=== PATIENT | female | born 1980 | race Caucasian/White ===

== ENCOUNTER 2016-09-18 20:22 | Emergency (ER) | payer MEDICAID ==
[~2016-09-18] VITALS: Ht 175.3 cm; Wt 65.8 kg
[~2016-09-18 20:22] MED LIST: ALBU8.5H4 IH; AMOX500C2 PO; AMOX500T2 PO; CEFD300C3 PO; CEPH-507 PO; CEPH500C PO; CITA40TA19 PO; CLIN300C3 PO; CRAN450T9 PO; DOCU-143 PO; FAMO-119 PO; HCPR10FM RC; HYDR-3714 PO; HYDR-3816 PO; HYDR50CA3 PO; IBUP-1773 PO; IBUP800T26 PO; KETO75CA PO; LAMO100T PO; LEVO500T80 PO; LIDO20SO20 PO; METO-272 PO; METO10TA3 PO; METR500T PO; NAPR-243 PO; NAPR220T66 PO; OMEP20TA2 PO; ONDA-42 SL; PHEN-639 PO; PHEN100T17 PO; POLY17PO23 GT; PRD20T PO; PRM25T PO; PSEU120T16 PO; QUET100T PO; QUET150T PO; latuda
[2016-09-18 20:55] LABS: KETONES,URINE NEGATIVE (NEGATIVE); LEUKOCYTE ESTERASE ,URINE 1+ (NEGATIVE); NITRITE,URINE NEGATIVE (NEGATIVE); PH,URINE 6 (5-9); PROTEIN,URINE 2+ (NEGATIVE); UROBILINOGEN,URINE NORMAL (NORMAL)
[2016-09-18 21:13] LABS: BILIRUBIN,URINE 1+ (NEGATIVE); SQUAMOUS EPITHELIAL CELL,UR 25-50 /HPF
[2016-09-18] MEDS ORDERED: NS IV 1000 ML 1,000 ML IV ONE (21:25)
[2016-09-18] MEDS ORDERED: ONDANSETRON 4 MG/2 ML (SDV) Z0FRAN IVP ONE (21:30)
[2016-09-18] MEDS ORDERED: fentaNYL INJECTION 100 MCG/2 ML AMP IVP ONE (21:30)
[2016-09-18 21:47] LABS: BASOPHILS % (AUTO) 0 % (0-10); EOSINOPHILS # (AUTO) 0.1 10^3/uL (0.0-0.3); EOSINOPHILS % (AUTO) 1 % (0-10); LYMPHOCYTES % (AUTO) 18 % (12-44); MEAN CORPUSCULAR HEMOGLOBIN 31 PG (25-34); MEAN CORPUSCULAR HGB CONC 36 G/DL (32-36); MEAN CORPUSCULAR VOLUME 87 FL (80-99); MEAN PLATELET VOLUME 9.5 FL (7.4-10.4); MONOCYTES # (AUTO) 0.5 X 10^3 (0.0-1.0); MONOCYTES % (AUTO) 9 % (0-12); NEUTROPHILS % (AUTO) 72 % (42-75); PLATELET COUNT 192 10^3/uL (130-400); RED BLOOD COUNT 4.43 10^6/uL (4.35-5.85); RED CELL DISTRIBUTION WIDTH 11.8 % (10.0-14.5); WHITE BLOOD COUNT 5.7 10^3/uL (4.3-11.0)
[2016-09-18 22:15] LABS: ALANINE AMINOTRANSFERASE 56 U/L (0-55); ALBUMIN 4.4 G/DL (3.2-4.5); ANION GAP 11 MMOL/L (5-14); ASPARTATE AMINO TRANSFERASE 105 U/L (5-34); BILIRUBIN,TOTAL 1.1 MG/DL (0.1-1.0); BLOOD UREA NITROGEN 17 MG/DL (7-18); BUN/CREATININE RATIO 18; CALCIUM 8.5 MG/DL (8.5-10.1); CARBON DIOXIDE 21 MMOL/L (21-32); CHLORIDE 108 MMOL/L (98-107); CREATININE SERUM 0.92 MG/DL (0.60-1.30); GFR ESTIMATED > 60; GLUCOSE 106 MG/DL (70-105); LIPASE 17 U/L (8-78); POTASSIUM 3.3 MMOL/L (3.6-5.0); SODIUM 140 MMOL/L (135-145); TOTAL PROTEIN 7.2 G/DL (6.4-8.2)
[2016-09-18] MEDS ORDERED: PROMETHAZINE INJ 25 MG/ML (PHENERGAN) AMP IVP ONE (22:15)
[2016-09-18] MEDS ORDERED: HYOSCYAMINE 0.125 MG (LEVSIN) TAB SL ONE (22:15)
[2016-09-18] MEDS ORDERED: RX-HYOSCYAMINE 0.125 MG SL (LEVSIN) PPK#6 SL STA (22:47)
[2016-09-18] MEDS ORDERED: RX-ONDANSETRON 4 MG ODT (ZOFRAN) PPK #4 SL STA (22:47)
--- NOTE | 2016-09-18 22:56 | ED Abdominal Pain ---
General Chief Complaint: Abdominal/GI Problems Stated Complaint: VOMITING/BLADDER INFECTION Nursing Triage Note: lower abdominal pain, frequent/burning urination. treated with abx twice in last 2 weeks. Sepsis Screen: No Definite Risk Source of Information: Patient, Old Records Exam Limitations: No Limitations History of Present Illness Time Seen By Provider: 20:50 Initial Comments Patient presents with complaints of recurrent lower abdominal pain and dysuria. She has been treated for urinary tract infection multiple times in the last couple of months. A urine culture resulted at this facility demonstrated Gardnerella which she treated with Flagyl. She has had waxing and waning symptoms over the last couple of months. She was most recently treated in the emergency room at [facility] about 10 days ago. She completed that course of antibiotics but still has symptoms. The last 2 days she has developed nausea, vomiting, odorous belching, worsening dysuria, and chills. Her pain is cramping in nature and radiates up to the rest of her abdomen. She has been vomiting today. She reports children at home who have had vomiting as well. She has had pain with intercourse but denies any vaginal discharge. She does have a history of vaginal infections. She has not had a pelvic exam in the past couple of months. She reports her primary care provider has plans to refer her to a urologist. She has had C-sections, appendectomy complicated by perforation, cholecystectomy, and tubal ligation. She has resulting adhesive disease. Allergies and Home Medications Allergies Coded Allergies: codeine (Unverified Allergy, Severe, SWELLING OF THE THROAT, 12/04/15) PT DENIES BEING ALLERGIC TO TYLENOL #3, 12/04/15. latex (Unverified Allergy, Unknown, 09/05/14) Home Medications Hydroxyzine Pamoate 50 Mg Capsule 50 MG PO TID PRN PRN ANXIETY (Reported) LAST FILLED #90 -5-16 Quetiapine Fumarate 150 Mg Tab.er.24h 150 MG PO HS (Reported) LAST FILLED #30 5-16 Review of Systems Constitutional: no symptoms reported EENTM: No Symptoms Reported Respiratory: No Symptoms Reported Cardiovascular: No Symptoms Reported Gastrointestinal: See HPI Genitourinary: See HPI Musculoskeletal: no symptoms reported Skin: no symptoms reported Psychiatric/Neurological: No Symptoms Reported Past Tvbtwfh-Hgvbjx-Oablph Hx Patient Social History Alcohol Use: Denies Use Recreational Drug Use: Yes Drug of Choice: cannibus Smoking Status: Never a Smoker Recent Foreign Travel: No Contact w/Someone Who Travel: No Recent Infectious Disease Expo: No Recent Hopitalizations: No Physical Abuse Screen: No Sexual Abuse: No Immunizations Up To Date Tetanus Booster (TDap): Unknown Date of Influenza Vaccine: Jun 10, 2015 Seasonal Allergies Seasonal Allergies: No Surgeries HX Surgeries: Yes (TENDON RELEASE/R THUMB, oral, RT ELBOW) Surgeries: Abdominal, Appendectomy, Section, Gallbladder, Orthopedic, Tubal Ligation Respiratory Hx Respiratory Disorders: No Cardiovascular Hx Cardiac Disorders: No Neurological Hx Neurological Disorders: No Reproductive System : No Hx Reproductive Disorders: Yes (left ovarian mass) Sexually Transmitted Disease: No Female Reproductive Disorders: Ovarian 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 ) Psychosocial Hx Psychiatric Problems: Yes Behavioral Health Disorders: Anxiety, Bipolar, Depression Integumentary HX Skin/Integumentary Disorder: No Blood Transfusions Hx Blood Disorders: No Adverse Reaction to a Blood Tr: No Family Medical History Significant Family History: No Pertinent Family Hx Family Medial History: Chronic constipation 19 MOTHER FH: colonic polyps 19 MOTHER Hypertension 19 FATHER 19 MOTHER Kidney stone 19 FATHER 19 MOTHER Physical Exam Vital Signs VS - Last 72 Hours, by Label 09/18/16 09/18/16 20:38 23:04 Temp 98.5 98.2 Pulse 81 90 Resp 18 18 B/P 137/55 Pulse Ox 98 100 O2 Delivery Room Air Room Air Capillary Refill : Less Than 3 Seconds General Appearance: WD/WN mild distress HEENT: PERRL/EOMI normal ENT inspection pharynx normal Respiratory: lungs clear normal breath sounds no respiratory distress no accessory muscle use Cardiovascular: regular rate, rhythm no edema no murmur Gastrointestinal: normal bowel sounds soft tenderness (Across the lower abdomen) Extremities: normal inspection Back: normal inspection no CVA tenderness Pelvic: normal external exam normal adnexa no cerv. motion tender no masses Neurologic/Psychiatric: tool checker II-XII nml as tested no motor/sensory deficits alert normal mood/affect oriented x 3 Skin: normal color warm/dry Progress/Results/Core Measures Results/Orders Lab Results Laboratory Tests Test 1/9/17 20:35 09/18/16 21:40 09/18/16 22:11 Range/Units Urine Bacteria TRACE /HPF Urine Bilirubin 1+ H NEGATIVE Urine Casts NONE /LPF Urine Clarity SLIGHTLY CLOUDY Urine Color YELLOW Urine Crystals NONE /LPF Urine Culture Indicated YES Urine Glucose (UA) NEGATIVE NEGATIVE Urine Ketones NEGATIVE NEGATIVE Urine Leukocyte Esterase 1+ H NEGATIVE Urine Mucus LARGE H /LPF Urine Nitrite NEGATIVE NEGATIVE Urine Protein 2+ H NEGATIVE Urine RBC 2-5 H /HPF Urine RBC (Auto) 2+ H NEGATIVE Urine Specific [place] 1.025 H 1.016-1.022 Urine Squamous Epithelial Cells 25-50 H /HPF Urine Urobilinogen NORMAL NORMAL MG/DL Urine WBC 10-25 H /HPF Urine pH 6 5-9 Alanine Aminotransferase (ALT/SGPT) 56 H 0-55 U/L Albumin 4.4 3.2-4.5 G/DL Alkaline Phosphatase 49 40-136 U/L Anion Gap 11 5-14 MMOL/L Aspartate Amino Transf (AST/SGOT) 105 H 5-34 U/L BUN/Creatinine Ratio 18 Basophils # (Auto) 0.0 0.0-0.1 10^3/uL Basophils (%) (Auto) 0 0-10 % Blood Urea Nitrogen 17 7-18 MG/DL C-Reactive Protein High Sensitivity 2.58 H 0.00-0.50 MG/DL Calcium Level 8.5 8.5-10.1 MG/DL Carbon Dioxide Level 21 21-32 MMOL/L Chloride Level 108 H 98-107 MMOL/L Creatinine 0.92 0.60-1.30 MG/DL Eosinophils # (Auto) 0.1 0.0-0.3 10^3/uL Eosinophils (%) (Auto) 1 0-10 % Estimat Glomerular Filtration Rate > 60 Glucose Level 106 H 70-105 MG/DL Hematocrit 38 35-52 % Hemoglobin 13.8 11.5-16.0 G/DL Lipase 17 8-78 U/L Lymphocytes # (Auto) 1.0 1.0-4.0 X 10^3 Lymphocytes (%) (Auto) 18 12-44 % Mean Corpuscular Hemoglobin 31 25-34 PG Mean Corpuscular Hemoglobin Concent 36 32-36 G/DL Mean Corpuscular Volume 87 80-99 FL Mean Platelet Volume 9.5 7.4-10.4 FL Monocytes # (Auto) 0.5 0.0-1.0 X 10^3 Monocytes (%) (Auto) 9 0-12 % Neutrophils # (Auto) 4.0 1.8-7.8 X 10^3 Neutrophils (%) (Auto) 72 42-75 % Platelet Count 192 130-400 10^3/uL Potassium Level 3.3 L 3.6-5.0 MMOL/L Red Blood Count 4.43 4.35-5.85 10^6/uL Red Cell Distribution Width 11.8 10.0-14.5 % Serum Test, Qualitative NEGATIVE NEGATIVE Sodium Level 140 135-145 MMOL/L Total Bilirubin 1.1 H 0.1-1.0 MG/DL Total Protein 7.2 6.4-8.2 G/DL White Blood Count 5.7 4.3-11.0 10^3/uL Micro Results Microbiology My Orders Orders-JOSE JUAN BROWN MD Ua Culture If Indicated (09/18/16 20:50) Urine Culture (09/18/16 20:35) Cbc With Automated Diff (09/18/16 21:25) Comprehensive Metabolic Panel (09/18/16 21:25) Hcg,Qualitative Serum (09/18/16 21:25) Lipase (09/18/16 21:25) Saline Lock/Iv-Start (09/18/16 21:25) Ns Iv 1000 Ml (Sodium Chloride 0.9%) (09/18/16 21:25) Ondansetron Injection (Zofran Injectio (09/18/16 21:30) Fentanyl Injection (Sublimaze Injection (09/18/16 21:30) Wet Prep (09/18/16 21:27) Neisseria Gonorrhea Dna (09/18/16 21:27) Chlamydia Dna (09/18/16 21:27) Genital Culture (09/18/16 21:27) Hs C Reactive Protein (09/18/16 22:00) Promethazine Injection (Phenergan Injec (09/18/16 22:15) Hyoscyamine Sl Tablet (Levsin Sl Tablet) (09/18/16 22:15) Azithromycin Tablet (Zithromax Tablet) (09/18/16 23:00) Ceftriaxone Injection (Rocephin Injectio (09/18/16 23:00) Rx-Ondansetron Po (Rx-Zofran Po) (09/18/16 22:47) Rx-Hyoscyamine Tab (Rx-Levsin Sl) (09/18/16 22:47) Medications Given in ED Current Medications Medications Dose Ordered Sig/Zee Route Start Time Stop Time Status Last Admin Dose Admin Azithromycin 1000 mg 1,000 mg ONCE ONCE PO 09/18/16 23:00 09/18/16 23:01 DC 09/18/16 22:55 1,000 MG Ceftriaxone Sodium/Sodium Chloride 50 ml @ 100 mls/hr ONCE ONCE IV 09/18/16 23:00 09/18/16 23:04 DC 09/18/16 22:55 100 MLS/HR Fentanyl Citrate 50 mcg ONCE ONCE IVP 09/18/16 21:30 09/18/16 21:31 DC 09/18/16 21:37 50 MCG Hyoscyamine Sulfate 0.25 mg ONCE ONCE SL 09/18/16 22:15 09/18/16 22:17 DC 09/18/16 22:19 0.25 MG Ondansetron HCl 8 mg ONCE ONCE IVP 09/18/16 21:30 09/18/16 21:31 DC 09/18/16 21:37 8 MG Promethazine HCl 12.5 mg ONCE ONCE IVP 09/18/16 22:15 09/18/16 22:17 DC 09/18/16 22:19 12.5 MG Sodium Chloride 1,000 ml @ 0 mls/hr Q0M ONCE IV 09/18/16 21:25 09/18/16 21:27 DC 09/18/16 21:37 0 MLS/HR Vital Signs/I&O Vital Sign - Last 12Hours 09/18/16 09/18/16 20:38 23:04 Temp 98.5 98.2 Pulse 81 90 Resp 18 18 B/P 137/55 Pulse Ox 98 100 O2 Delivery Room Air Room Air Intake and Output 09/19/16 00:00 Intake Total 1050 ml Balance 1050 ml Blood Pressure Mean: 82 Progress Note : Progress Note Patient's pain was treated with fentanyl and nausea was treated with Zofran. Labs were ordered. Questionable presence of urinary tract infection was identified by UA. Refractory nausea was present and promethazine was administered. Levsin was given for cramping which completely resolved her pain. A liter of IV fluids was infused. Because of the recurrent nature of her pelvic pain and history of prior pelvic infections, patient was empirically treated with Rocephin and azithromycin. Departure Impression Impression: Primary Impression: Nausea and vomiting Qualified Code: R11.2 - Nausea with vomiting, unspecified Additional Impressions: Abdominal cramping Urinary tract infection Qualified Code: N39.0 - Urinary tract infection, site not specified Disposition: 01 HOME, SELF-CARE Condition: Improved Departure-Patient Inst. Decision time for Depature: 22:45 Referrals: [facility] (PCP) Primary Care Physician Patient Instructions: Acute Abdomen (Belly Pain), Adult (DC) Add. Discharge Instructions: Follow-up with your primary care provider and/or senior product development manager as soon as possible. Review the vaginal and urine cultures to determine if further antibiotic therapy is necessary. No intercourse or anything vaginally until these results are reviewed with your doctor. Dissolve Zofran (ondansetron) under the tongue every 4 hours as needed for nausea. Dissolve Levsin (hyoscyamine) under the tongue every 4 hours as needed for cramping. Return to the emergency room for worsening symptoms. Drink plenty of clear liquids and gradually advance your diet with small quantities of bland food as tolerated. All discharge instructions reviewed with patient and/or family. Voiced understanding. Copy Copies To 1: ROSARIO DOWNS MD, JOSHUA T MD Sep 18, 2016 22:56
[2016-09-18] MEDS ORDERED: AZITHROMYCIN 250 MG TAB (ZITHROMAX) PO ONE (23:00)
[2016-09-18] MEDS ORDERED: cefTRIAXone INJECTION 1,000 MG in NORMAL SALINE (BAXTER MINI) 50 ML IV ONE (23:00)
[2016-09-18 23:04] VITALS: BP 129/74
== END 2016-09-18 23:03 | disposition home or self-care (01) ==
LOC: EDUNIT# 20:22 → ER 20:23
DX: R11.2 Nausea with vomiting, unspecified (principal); R10.84 Generalized abdominal pain; N39.0 Urinary tract infection, site not specified
CPT/HCPCS: 36415; 80053; 81000; 83690; 84703; 85025; 86141; 87070; 87088; 87210; 87491; 87591; 96361; 96374; 96375

== ENCOUNTER 2017-07-11 17:27 | Emergency (ER) | payer MEDICAID ==
[~2017-07-11] VITALS: Ht 175.3 cm; Wt 63.5 kg
--- OUTSIDE RECORDS SUMMARY | 2017-07-11 18:31 | XMS REPORT ---
Author Author AIXA DOWNEY Organization [facility] Address [address] [place] [address] Care Team Providers Care Ward Service Supervisor Name Role Phone AIXA DOWNEY Unavailable PROBLEMS Type Condition ICD9-CM Code [id number] Code Onset Dates Condition Status SNOMED Code Problem Bipolar II disorder F31.81 Active 53124467 Problem History of urinary infection Z87.440 Active 223948762 Problem Post-traumatic stress disorder, chronic F43.12 Active 98978293 Problem Abdominal pain 789.00 Active 57318837 Problem Acute oral pain 528.9 Active 544099056 Problem Social phobia, generalized F40.11 Active 43048053 Problem Seasonal allergic rhinitis, unspecified allergic rhinitis trigger J30.2 Active 256359447 Problem Persistent headaches R51 Active 78749722 Problem 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 497319875 Problem Hemorrhoids, unspecified hemorrhoid type K64.9 Active 48908400 Problem Nevus D22.9 Active 55344371 ALLERGIES Substance Reaction Event Type Date Status Latuda hives Drug Allergy Nov, Active Codeine Unknown Non Drug Allergy Nov, Active SOCIAL HISTORY Never Assessed PLAN OF CARE Activity Details Follow Up prn Reason: VITAL SIGNS Height 69 in 2016-11-12 Weight 146 lbs 2016-11-12 Temperature 98.1 degrees Fahrenheit 2016-11-12 Heart Rate 86 bpm 2016-11-12 Respiratory Rate 18 2016-11-12 BMI 21.56 kg/m2 2016-11-12 Blood pressure systolic 122 mmHg 2016-11-12 Blood pressure diastolic 76 mmHg 2016-11-12 MEDICATIONS Medication Instructions Dosage Frequency Start Date End Date Duration Status HydrOXYzine Pamoate 50 mg Orally 2 times a day for anxiety 1 capsule as needed Jul, Active Hydrocortisone 1 % Externally Twice a day 1 application to affected area 12h 07 May, 2016 Active Diflucan 150 MG Orally Once a day 1 tablet, then repeat in 72 hours 24h Nov, Nov, 3 days Active Seroquel XR 150 MG Orally Once a day at hs 1 tablet Jul, Active PredniSONE 50 MG Orally Once a day 1 tablet 24h Nov, Nov, 5 days Active Cetirizine HCl 10 MG Orally Once a day 1 tablet 24h Nov, 30 day (s) Active Metoprolol Tartrate 25 MG Orally Twice a day for panic 1 tablet with food Sep, 30 day(s) Active RESULTS No Results PROCEDURES Procedure Date Ordered Result Body Site SOLUMEDROL (UP TO 125 MG) November 12, 2016 THER/PROPH/DIAG INJ, SC/IM November 12, 2016 IMMUNIZATIONS Vaccine Route Administration Date Status SOLUMEDROL (UP TO 125 MG) IM Intramuscular November 12, 2016 Administered MEDICAL (GENERAL) HISTORY Type Description Date Medical History depression Medical History anxiety Medical History bipolar disorder: was admitted to [facility] in - April 2013 Medical History leaking appendix: 13 years ago during - had it removed after delivery Medical History Social anxiety disorder Surgical History tubal ligation 2007 Surgical History cholecystectomy 2001 Surgical History appendectomy 2000 Surgical History breast biopsy X2 1998 Surgical History orthopedic surgery: right elbow surgery, right wrist tendon release - Dr. Schmidt - [place], [place] 1997, 2014 Hospitalization History Sepsis--[facility] 11/2015
--- OUTSIDE RECORDS SUMMARY | 2017-07-11 18:31 | XMS REPORT ---
Author Author APOORVA LOPEZ [facility] e[employer] Address Unknown Phone Unavailable Care Team Providers Care Creative Specialist Name Role Phone APOORVA LOPEZ CP Unavailable Allergies No Known Allergies Problems Problem Type Condition Code Onset Dates Condition Status Assessment Post-traumatic stress disorder, chronic F43.12 Active Problem Post-traumatic stress disorder, chronic F43.12 Active Problem Social anxiety disorder F40.10 Active Problem Bipolar II disorder F31.81 Active Assessment Bipolar II disorder F31.81 Active Assessment Social anxiety disorder F40.10 Active Problem Acute oral pain 528.9 Active Problem Abdominal pain 789.00 Active Medications No Known Medications Procedures Procedure Coding System Code Date Psychotherapy, patient &/family, 45 minutes, established patient CPT-4 51341 Jun 22, 2015 Results No Known Results Summary Purpose eClinicalWorks Submission
--- OUTSIDE RECORDS SUMMARY | 2017-07-11 18:31 | XMS REPORT ---
Author VALENTE Alexander Organization [employer] Address Unknown Phone Unavailable Care Team Providers Care Sewer Pipe Layer Name Role Phone VALENTE GUERRA CP Unavailable Allergies, Adverse Reactions, Alerts Substance Reaction Event Type Latuda hives Drug Allergy Problems Problem Type Condition Code Onset Dates Condition Status Assessment Post-traumatic stress disorder, chronic F43.12 Active Problem Post-traumatic stress disorder, chronic F43.12 Active Problem Social anxiety disorder F40.10 Active Problem Bipolar II disorder F31.81 Active Assessment Bipolar II disorder F31.81 Active Assessment Social anxiety disorder F40.10 Active Problem Acute oral pain 528.9 Active Problem Abdominal pain 789.00 Active Medications Medication Code System Code Instructions Start Date End Date Status Dosage Seroquel XR [facility] [address]-31 150 MG Orally Once a day Jul 27, 2015 1 tablet in the evening MiraLax [facility] [address]-14 17 gm/dose Orally Once a day January 21, 2015 as directed Ibuprofen [facility] [address]-57 800 MG Orally Three times a day 1 tablet Toprol XL [facility] [address]-92 50 MG Orally Once a day May 20, 2015 1 tablet Lamictal [facility] [address]-71 100 MG Orally take 1 tablet in AM Jul 27, 2015 1 tablet HydrOXYzine Pamoate [facility] [address]-16 50 MG Orally 3 times a day for anxiety Jul 27, 2015 1 capsule as needed Procedures Procedure Coding System Code Date Office Visit, Est Pt., Level 4 CPT-4 73172 Sep 07, 2015 Psychotherapy, patient &/family, with E&M, 30 minutes, established patient CPT -4 29408 Sep 07, 2015 Vital Signs Date/Time: Sep 07, 2015 Cardiac Monitoring Heart Rate 100 bpm Weight 137.0 lbs Height 69 in BMI 20.23 Index Blood Pressure Diastolic 94 mmHg Blood Pressure Systolic 130 mmHg Results No Known Results Summary Purpose eClinicalWorks Submission
--- OUTSIDE RECORDS SUMMARY | 2017-07-11 18:31 | XMS REPORT ---
Author Author NIMA ZACARIAS Organization [employer] Address Unknown Phone Unavailable Care Team Providers Care Second Vp Hr Assessment Name Role Phone NIMA ZACARIAS CP Unavailable Allergies No Known Allergies Problems Problem Type Condition Code Onset Dates Condition Status Problem Post-traumatic stress disorder, chronic F43.12 Active Problem Social anxiety disorder F40.10 Active Problem Bipolar II disorder F31.81 Active Problem Acute oral pain 528.9 Active Problem Abdominal pain 789.00 Active Medications No Known Medications Results No Known Results Summary Purpose eClinicalWorks Submission
--- OUTSIDE RECORDS SUMMARY | 2017-07-11 18:31 | XMS REPORT ---
Author VALENTE Alexander [employer] Address Unknown Phone Unavailable Care Team Providers Care Rn Ccu Name Role Phone VALENTE GUERRA CP Unavailable Allergies, Adverse Reactions, Alerts Substance Reaction Event Type Latuda hives Drug Allergy Problems Problem Type Condition Code Onset Dates Condition Status Problem Social anxiety disorder F40.10 Active Problem Bipolar II disorder F31.81 Active Problem Post-traumatic stress disorder, chronic F43.12 Active Problem PTSD (post-traumatic stress disorder) F43.10 Active Problem Nevus D22.9 Active Problem Seasonal allergic rhinitis, unspecified allergic rhinitis trigger J30.2 Active Problem Hemorrhoids, unspecified hemorrhoid type K64.9 Active Problem History of urinary infection Z87.440 Active Problem 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 Problem Persistent headaches R51 Active Assessment Post-traumatic stress disorder, chronic F43.12 Active Assessment Bipolar II disorder F31.81 Active Problem Abdominal pain 789.00 Active Assessment Social anxiety disorder F40.10 Active Problem Acute oral pain 528.9 Active Medications Medication Code System Code Instructions Start Date End Date Status Dosage HydrOXYzine Pamoate [facility] [address]-43 50 mg Orally 3 times a day for anxiety Jul 27, 2015 1 capsule as needed Seroquel XR [facility] [address]-64 150 MG Orally Once a day at hs Jul 27, 2015 1 tablet Sarna [facility] [address]-57 0.5-0.5 % Externally Three times a day May 17, 2016 1 application to affected area as needed Hydrocortisone [facility] [address]-72 1 % Externally Twice a day May 17, 2016 1 application to affected area Clobetasol Propionate [facility] [address]-25 0.05 % Externally Twice a day April 06, 2016 1 application to affected area Lamictal [facility] [address]-23 100 MG Orally 1/2 tab in AM and 1 full at HS Jul 27, 2015 1 tablet Toprol XL [facility] [address]-26 50 MG Orally Once at night May 20, 2015 1 tablet Flonase NDC 0 50 MCG/DOSE Nasally twice a day May 17, 2016 1 spray in each nostril Colace [facility] [address]-43 100 MG Orally 2 times a day prn 1 capsule as needed Cranberry Fruit [facility] [address]-42 405 MG Orally not defined Proctofoam HC [facility] [address]-85 1-1 % Rectal Four times a day April 06, 2016 1 application as needed Claritin [facility] [address]-32 10 mg Orally Once a day May 17, 2016 1 tablet Procedures Procedure Coding System Code Date MH Office Visit, Est Pt., Level 4 CPT-4 90406 Jun 27, 2016 Vital Signs Date/Time: Jun 27, 2016 Cardiac Monitoring Heart Rate 76 bpm Weight 150.0 lbs Height 69 in BMI 22.15 Index Blood Pressure Diastolic 65 mmHg Blood Pressure Systolic 110 mmHg Results No Known Results Summary Purpose eClinicalWorks Submission
--- OUTSIDE RECORDS SUMMARY | 2017-07-11 18:31 | XMS REPORT ---
Author Author VALENTE GUERRA [facility] Address [address] [place] [address] Care Team Providers Care Journeyman Patternmaker Name Role Phone VALENTE GUERRA Unavailable PROBLEMS Type Condition ICD9-CM Code [id number] Code Onset Dates Condition Status SNOMED Code Problem Bipolar II disorder F31.81 Active 44676187 Problem History of urinary infection Z87.440 Active 215667890 Problem Post-traumatic stress disorder, chronic F43.12 Active 13316284 Problem Abdominal pain 789.00 Active 71149828 Problem Acute oral pain 528.9 Active 960287523 Problem Social phobia, generalized F40.11 Active 16869403 Problem Seasonal allergic rhinitis, unspecified allergic rhinitis trigger J30.2 Active 888627273 Problem Persistent headaches R51 Active 82987339 Problem 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
--- OUTSIDE RECORDS SUMMARY | 2017-07-11 18:32 | XMS REPORT ---
Author Author [facility]EINAB GARRISON [facility] Address [address] [place] [address] Care Team Providers Care Hop Trainer Name Role Phone ZEINAB GARRISON Unavailable PROBLEMS Type Condition ICD9-CM Code [id number] Code Onset Dates Condition Status SNOMED Code Problem Post-traumatic stress disorder, chronic F43.12 Active 50517675 Problem History of urinary infection Z87.440 Active 536505728 Problem Bipolar II disorder F31.81 Active 37114434 Assessment Seasonal allergic rhinitis, unspecified allergic rhinitis trigger J30.2 May, Active 120177525 Problem Abdominal pain 789.00 Active 08456318 Problem Acute oral pain 528.9 Active 209896644 Problem Social anxiety disorder F40.10 Active 18436121 Problem Seasonal allergic rhinitis, unspecified allergic rhinitis trigger J30.2 Active 389863432 Problem PTSD (post-traumatic stress disorder) F43.10 Active 61078341 Problem Persistent headaches R51 Active 81791340 Problem Hemorrhoids, unspecified hemorrhoid type K64.9 Active 37000607 Problem Nevus D22.9 Active 40512715 Problem 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 722655230 ALLERGIES Substance Reaction Event Type Date Status Latuda hives Drug Allergy May, Active SOCIAL HISTORY No smoking Hx information available PLAN OF CARE VITAL SIGNS Height 69 in 2016-05-17 Weight 148.8 lbs 2016-05-17 Heart Rate 80 bpm 2016-05-17 Respiratory Rate 16 2016-05-17 BMI 21.97 kg/m2 2016-05-17 Blood pressure systolic 118 mmHg 2016-05-17 Blood pressure diastolic 62 mmHg 2016-05-17 MEDICATIONS Medication Instructions Dosage Frequency Start Date End Date Duration Status Toprol XL 50 MG Orally Once at night 1 tablet May, Active Proctofoam HC 1-1 % Rectal Four times a day 1 application as needed 6h Mar, Active Colace 100 MG Orally 2 times a day prn 1 capsule as needed Active Sarna 0.5-0.5 % Externally Three times a day 1 application to affected area as needed 8h May, Active Claritin 10 mg Orally Once a day 1 tablet 24h May, Active Cranberry Fruit 405 MG Active HydrOXYzine Pamoate 50 mg Orally 3 times a day for anxiety 1 capsule as needed Jul, Active Seroquel XR 150 MG Orally Once a day at hs 1 tablet Jul, Active Lamictal 100 MG Orally Once a day 1 tablet 24h Jul, Active Flonase 50 MCG/DOSE Nasally twice a day 1 spray in each nostril 12h May Active Hydrocortisone 1 % Externally Twice a day 1 application to affected area 12h May, Active RESULTS No Results PROCEDURES Procedure Date Ordered Related Diagnosis Body Site Office Visit, Est Pt., Level 3 May 17, 2016 IMMUNIZATIONS No Known Immunizations
--- OUTSIDE RECORDS SUMMARY | 2017-07-11 18:32 | XMS REPORT ---
Author Author CELINA Mosley [facility] Address Unknown Care Team Providers Care Job Estimator Name Role Phone CELINA Mosley Unavailable PROBLEMS Type Condition ICD9-CM Code [id number] Code Onset Dates Condition Status SNOMED Code Problem Bipolar II disorder F31.81 Active 58933761 Problem History of urinary infection Z87.440 Active 177758911 Problem Post-traumatic stress disorder, chronic F43.12 Active 63459982 Problem Abdominal pain 789.00 Active 81591503 Problem Acute oral pain 528.9 Active 433402356 Problem Social phobia, generalized F40.11 Active 19413898 Problem Seasonal allergic rhinitis, unspecified allergic rhinitis trigger J30.2 Active 100343681 Problem Persistent headaches R51 Active 51378879 Problem 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 114402272 Problem Hemorrhoids, unspecified hemorrhoid type K64.9 Active 90456640 Problem Nevus D22.9 Active 91479798 ALLERGIES Substance Reaction Event Type Date Status Latuda hives Drug Allergy Aug, Active Codeine Unknown Non Drug Allergy Aug, Active SOCIAL HISTORY No smoking Hx information available PLAN OF CARE Activity Details Follow Up prn Reason:melba/hygiene VITAL SIGNS Height 69 in 2016-08-10 Blood pressure systolic 110 mmHg 2016-08-10 Blood pressure diastolic 77 mmHg 2016-08-10 MEDICATIONS Medication Instructions Dosage Frequency Start Date End Date Duration Status HydrOXYzine Pamoate 50 mg Orally 3 times a day for anxiety 1 capsule as needed Jul, Active Cranberry Fruit 405 MG Active Seroquel XR 150 MG Orally Once a day at hs 1 tablet Jul, Active Cyclone 5-325 MG Orally every 6 hrs 1 tablet as needed 6h 4 days Active Colace 100 MG Orally 2 times a day prn 1 capsule as needed Active Toprol XL 50 MG Orally Once at night 1 tablet May, Active Sarna 0.5-0.5 % Externally Three times a day 1 application to affected area as needed 8h May, Active Clobetasol Propionate 0.05 % Externally Twice a day 1 application to affected area 12h Mar, Active Claritin 10 mg Orally Once a day 1 tablet 24h May, Active Proctofoam HC 1-1 % Rectal Four times a day 1 application as needed 6h Mar, Active Flonase 50 MCG/DOSE Nasally twice a day 1 spray in each nostril 12h May Active Cyclone 5-325 MG Orally every 6 hrs 1 tablet as needed 6h Aug,Aug 4 days Active Amoxicillin 500 MG Orally 4 times daily 1 capsule 7 days Active Lamictal 100 MG Orally 1/2 tab in AM and 1 full at HS 1 tablet Jul, Active Hydrocortisone 1 % Externally Twice a day 1 application to affected area 12h May, Active RESULTS No Results PROCEDURES Procedure Date Ordered Related Diagnosis Body Site RESIN COMPOS - 2 SURFACES ANTERIOR Aug 10, 2016 ANTERIOR Aug 10, 2016 Billing Notes on claim Aug 10, 2016 IMMUNIZATIONS No Known Immunizations
--- OUTSIDE RECORDS SUMMARY | 2017-07-11 18:32 | XMS REPORT ---
Author NIMA Williamson Organization [employer] Address Unknown Phone Unavailable Care Team Providers Care Clinical Documentation Developer Name Role Phone NIMA ZACARIAS CP Unavailable Allergies No Known Allergies Problems Problem Type Condition Code Onset Dates Condition Status Problem Abdominal pain 789.00 Active Problem Social anxiety disorder F40.10 Active Problem Acute oral pain 528.9 Active Problem 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 Problem Persistent headaches R51 Active Problem Nevus D22.9 Active Problem Bipolar II disorder F31.81 Active Problem Post-traumatic stress disorder, chronic F43.12 Active Problem Hemorrhoids, unspecified hemorrhoid type K64.9 Active Problem History of urinary infection Z87.440 Active Medications Medication Code System Code Instructions Start Date End Date Status Dosage Clobetasol Propionate [facility] [address]-51 0.05 % Externally Twice a day April 06, 2016 1 application to affected area Results No Known Results Summary Purpose eClinicalWorks Submission
--- OUTSIDE RECORDS SUMMARY | 2017-07-11 18:32 | XMS REPORT ---
Author Author NIMA ZACARIAS [facility] Address [address] [place] [address] Care Team Providers Care Coater Name Role Phone NIMA ZACARIAS Unavailable PROBLEMS Type Condition ICD9-CM Code [id number] Code Onset Dates Condition Status SNOMED Code Problem Bipolar II disorder F31.81 Active 25065548 Problem History of urinary infection Z87.440 Active 892470460 Problem Post-traumatic stress disorder, chronic F43.12 Active 20868964 Problem Abdominal pain 789.00 Active 64578555 Problem Acute oral pain 528.9 Active 512492668 Problem Social phobia, generalized F40.11 Active 58829723 Problem Seasonal allergic rhinitis, unspecified allergic rhinitis trigger J30.2 Active 197833974 Problem Persistent headaches R51 Active 32251058 Problem 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 489602475 Problem Hemorrhoids, unspecified hemorrhoid type K64.9 Active 60849833 Problem Nevus D22.9 Active 38029202 ALLERGIES No Information SOCIAL HISTORY Never Assessed PLAN OF CARE VITAL SIGNS MEDICATIONS Medication Instructions Dosage Frequency Start Date End Date Duration Status Flagyl 500 MG Orally 2 times a day 1 tablet 12h Oct, Oct, 07 days Active RESULTS No Results PROCEDURES No Known procedures IMMUNIZATIONS No Known Immunizations MEDICAL (GENERAL) HISTORY Type Description Date Medical History depression Medical History anxiety Medical History bipolar disorder: was admitted to [facility] in - April 2013 Medical History leaking appendix: 13 years ago during - had it removed after delivery Medical History Social anxiety disorder Surgical History tubal ligation 2007 Surgical History cholecystectomy 2001 Surgical History appendectomy 2000 Surgical History breast biopsy X2 1999 Surgical History orthopedic surgery: right elbow surgery, right wrist tendon release - Dr. Brayan [place], [place] 1997, 2014 Hospitalization History Sepsis--UTI 11/2015
--- OUTSIDE RECORDS SUMMARY | 2017-07-11 18:32 | XMS REPORT ---
Author Author REGINA DAVISON [facility] [employer] Address Unknown Phone Unavailable Care Team Providers Care Pathology Technologist Name Role Phone REGINA DAVISON CP Unavailable Allergies, Adverse Reactions, Alerts Substance Reaction Event Type N.K.D.A. Info Not Available Non Drug Allergy Problems Problem Type Condition ICD-9 Code Onset Dates Condition Status Problem Abdominal pain 789.00 Active Assessment Acute oral pain 528.9 Active Problem Acute oral pain 528.9 Active Medications Medication Code System Code Instructions Start Date End Date Status Dosage [place] [facility] [address]-77 5-325 MG Orally every 6 hrs 1 tablet as needed Ibuprofen [facility] [address]-13 800 MG Orally Three times a day 1 tablet Zofran [facility] [address]-94 4 MG Orally 3 times a day May 15, 2015 1 tablet Procedures Procedure Coding System Code Date Office Visit, Est Pt., Level 3 CPT-4 73947 May 15, 2015 Vital Signs Date/Time: May 15, 2015 Temperature 97.5 F Weight 148.8 lbs Height 69 in BMI 21.97 Index Blood Pressure Diastolic 76 mmHg Blood Pressure Systolic 110 mmHg Cardiac Monitoring Heart Rate 94 bpm Results No Known Results Summary Purpose eClinicalWorks Submission
--- OUTSIDE RECORDS SUMMARY | 2017-07-11 18:32 | XMS REPORT ---
Author VALENTE Alexander [employer] Address Unknown Phone Unavailable Care Team Providers Care Storeroom Clerk Name Role Phone VALENTE GUERRA CP Unavailable Allergies No Known Allergies Problems Problem Type Condition Code Onset Dates Condition Status Problem Social anxiety disorder F40.10 Active Problem Bipolar II disorder F31.81 Active Problem Post-traumatic stress disorder, chronic F43.12 Active Problem Abdominal pain 789.00 Active Problem Acute oral pain 528.9 Active Problem PTSD (post-traumatic stress disorder) F43.10 Active Problem Nevus D22.9 Active Problem Seasonal allergic rhinitis, unspecified allergic rhinitis trigger J30.2 Active Problem Hemorrhoids, unspecified hemorrhoid type K64.9 Active Problem History of urinary infection Z87.440 Active Problem 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 Problem Persistent headaches R51 Active Medications Medication Code System Code Instructions Start Date End Date Status Dosage HydrOXYzine Pamoate [facility] [address]-62 50 mg Orally 3 times a day for anxiety Jul 27, 2015 1 capsule as needed Results No Known Results Summary Purpose [employer]ClinicalWorks Submission
--- OUTSIDE RECORDS SUMMARY | 2017-07-11 18:33 | XMS REPORT ---
Author VALENTE Alexander Organization [employer] Address Unknown Phone Unavailable Care Team Providers Care Last Scourer Name Role Phone VALENTE GUERRA CP Unavailable Allergies No Known Allergies Problems Problem Type Condition Code Onset Dates Condition Status Problem Post-traumatic stress disorder, chronic F43.12 Active Problem Social anxiety disorder F40.10 Active Problem Bipolar II disorder F31.81 Active Problem Acute oral pain 528.9 Active Problem Abdominal pain 789.00 Active Medications Medication Code System Code Instructions Start Date End Date Status Dosage Toprol XL [facility] [address]-37 50 MG Orally Once a day May 20, 2015 1 tablet Lamictal [facility] [address]-88 25 MG Orally take 1 tablet in the AM for 2 weeks then increase to 2 tablets each morning and continue for depression Jul 27, 2015 1 tablet Seroquel XR [facility] [address]-99 150 MG Orally Once a day Jul 27, 2015 1 tablet in the evening Results No Known Results Summary Purpose [employer]ClinicalWorks Submission
--- OUTSIDE RECORDS SUMMARY | 2017-07-11 18:33 | XMS REPORT ---
Author Author REGINA CHO [facility] Address [address] [place] [address] Care Team Providers Care Release Of Information Clerk Name Role Phone REGINA CHO Unavailable PROBLEMS Type Condition ICD9-CM Code [id number] Code Onset Dates Condition Status SNOMED Code Problem Bipolar II disorder F31.81 Active 59634975 Problem History of urinary infection Z87.440 Active 954239255 Problem Post-traumatic stress disorder, chronic F43.12 Active 73233848 Problem Abdominal pain 789.00 Active 46207450 Problem Acute oral pain 528.9 Active 396329523 Problem Social phobia, generalized F40.11 Active 81694399 Problem Seasonal allergic rhinitis, unspecified allergic rhinitis trigger J30.2 Active 264188573 Problem Persistent headaches R51 Active 49469501 Problem 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 199606097 Problem Hemorrhoids, unspecified hemorrhoid type K64.9 Active 24405044 Problem Nevus D22.9 Active 78117026 ALLERGIES Substance Reaction Event Type Date Status Latkleber hives Drug Allergy Nov, Active Codeine Unknown Non Drug Allergy Nov, Active SOCIAL HISTORY Never Assessed PLAN OF CARE Activity Details Follow Up prn Reason: VITAL SIGNS Height 69 in 2016-11-22 Weight 149.6 lbs 2016-11-22 Temperature 97.8 degrees Fahrenheit 2016-11-22 Heart Rate 88 bpm 2016-11-22 Respiratory Rate 18 2016-11-22 BMI 22.09 kg/m2 2016-11-22 Blood pressure systolic 116 mmHg 2016-11-22 Blood pressure diastolic 74 mmHg 2016-11-22 MEDICATIONS Medication Instructions Dosage Frequency Start Date End Date Duration Status Silvadene 1 % Externally twice a day 1 application to affected area 12h 15 Nov, 2016 Nov, 07 days Active HydrOXYzine Pamoate 50 mg Orally 2 times a day for anxiety 1 capsule as needed Jul, Active Seroquel XR 150 MG Orally Once a day at hs 1 tablet Jul, Active Cetirizine HCl 10 MG Orally Once [...] History bipolar disorder: was admitted to [facility] in - April 2013 Medical History leaking appendix: 13 years ago during - had it removed after delivery Medical History Social anxiety disorder Surgical History tubal ligation 2007 Surgical History cholecystectomy 2001 Surgical History appendectomy 2000 Surgical History breast biopsy X2 1998 Surgical History orthopedic surgery: right elbow surgery, right wrist tendon release - Dr. Schmidt - [place], [place] 1997, 2014 Hospitalization History Sepsis--UTI 11/2015
--- OUTSIDE RECORDS SUMMARY | 2017-07-11 18:35 | XMS REPORT ---
Author NIMA Williamson [facility] [employer] Address Unknown Phone Unavailable Care Team Providers Care Enterprise Resource Planning Consultant Name Role Phone NIMA ZACARIAS Unavailable Allergies, Adverse Reactions, Alerts Substance Reaction [...] Problem History of urinary infection Z87.440 Active Assessment Hemorrhoids, unspecified hemorrhoid type K64.9 Active Assessment Persistent headaches R51 Active Assessment 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 Assessment Nevus D22.9 Active Medications Medication Code System Code Instructions Start Date End Date Status Dosage Colace [facility] [address]-57 100 MG Orally 2 times a day prn 1 capsule as needed Zyrtec Allergy [facility] [address]-19 10 MG Orally Once a day December 15, 2015 Apr 13, 2016 1 tablet as needed Proctofoam HC [facility] [address]-89 1-1 % Rectal Four times a day April 06, 2016 1 application as needed Lamictal [facility] [address]-89 100 MG Orally Once a day Jul 27, 2015 1 tablet HydrOXYzine Pamoate [facility] [address]-00 50 mg Orally 3 times a day for anxiety Jul 27, 2015 1 capsule as needed Clobetasol Propionate [facility] [address]-12 0.05 % Externally Twice a day April 06, 2016 1 application to affected area Cranberry Fruit [facility] [address]-79 405 MG Orally not defined Seroquel XR [facility] [address]-29 150 MG Orally Once a day at hs Jul 27, 2015 1 tablet Procedures Procedure Coding System Code Date Office Visit, Est Pt., Level 4 CPT-4 80535 April 06, 2016 Vital Signs Date/Time: April 06, 2016 Cardiac Monitoring Heart Rate 70 bpm Weight 150.0 lbs Height 69 in BMI 22.15 Index Blood Pressure Diastolic 68 mmHg Blood Pressure Systolic 118 mmHg Results No Known Results Summary Purpose eClinicalWorks Submission
--- OUTSIDE RECORDS SUMMARY | 2017-07-11 18:35 | XMS REPORT ---
Author APOORVA Gudino Organization [employer] Address Unknown Phone Unavailable Care Team Providers Care Money Laundering Investigator Name Role Phone APOORVA LOPEZ CP Unavailable Allergies No Known Allergies Problems Problem Type Condition Code Onset Dates Condition Status Assessment Social anxiety disorder F40.10 Active Problem Post-traumatic stress disorder, chronic F43.12 Active Problem Social anxiety disorder F40.10 Active Problem Bipolar II disorder F31.81 Active Assessment Bipolar II disorder F31.81 Active Assessment Post-traumatic stress disorder, chronic F43.12 Active Problem Acute oral pain 528.9 Active Problem Abdominal pain 789.00 Active Medications No Known Medications Procedures Procedure Coding System Code Date Psychotherapy, patient &/family, 45 minutes, established patient CPT-4 22034 Jul 22, 2015 Results No Known Results Summary Purpose eClinicalWorks Submission
--- OUTSIDE RECORDS SUMMARY | 2017-07-11 18:35 | XMS REPORT ---
Author DARCI Barry Organization [employer] Address Unknown Phone Unavailable Care Team Providers Care Work Manager Name Role Phone DARCI SHELDON CP Unavailable Allergies, Adverse Reactions, Alerts Substance Reaction Event Type Latuda hives Drug Allergy Problems Problem Type Condition Code Onset Dates Condition Status Problem Abdominal pain 789.00 Active Problem Social anxiety disorder F40.10 Active Problem Acute oral pain 528.9 Active Assessment Skin tag L91.8 Active Problem 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 Problem Persistent headaches R51 Active Problem Nevus D22.9 Active Problem Bipolar II disorder F31.81 Active Problem Post-traumatic stress disorder, chronic F43.12 Active Problem Hemorrhoids, unspecified hemorrhoid type K64.9 Active Problem History of urinary infection Z87.440 Active Medications Medication Code System Code Instructions Start Date End Date Status Dosage HydrOXYzine Pamoate [facility] [address]-18 50 mg Orally 3 times a day for anxiety Jul 27, 2015 1 capsule as needed Clobetasol Propionate [facility] [address]-70 0.05 % Externally Twice a day April 06, 2016 1 application to affected area Cranberry Fruit [facility] [address]-08 405 MG Orally not defined Colace [facility] [address]-37 100 MG Orally 2 times a day prn 1 capsule as needed Seroquel XR [facility] [address]-13 150 MG Orally Once a day at hs Jul 27, 2015 1 tablet Lamictal [facility] [address]-54 100 MG Orally Once a day Jul 27, 2015 1 tablet Procedures Procedure Coding System Code Date Office Visit, Est Pt., Level 2 CPT-4 22201 May 02, 2016 REMOVAL OF SKIN TAGS CPT-4 56223 May 02, 2016 Vital Signs Date/Time: May 02, 2016 Cardiac Monitoring Heart Rate 88 bpm Weight 145 lbs Height 69 in BMI 21.41 Index Blood Pressure Diastolic 76 mmHg Blood Pressure Systolic 124 mmHg Results No Known Results Summary Purpose eClinicalWorks Submission
--- OUTSIDE RECORDS SUMMARY | 2017-07-11 18:35 | XMS REPORT ---
Author Author CELINA Mosley [facility] Address Unknown Care Team Providers Care Logistics Analyst Name Role Phone CELINA Mosley Unavailable PROBLEMS Type Condition ICD9-CM Code [id number] Code Onset Dates Condition Status SNOMED Code Problem Bipolar II disorder F31.81 Active 59134668 Problem History of urinary infection Z87.440 Active 442314590 Problem Post-traumatic stress disorder, chronic F43.12 Active 40377428 Problem Abdominal pain 789.00 Active 22477921 Problem Acute oral pain 528.9 Active 082580454 Problem Social phobia, generalized F40.11 Active 79893065 Problem Seasonal allergic rhinitis, unspecified allergic rhinitis trigger J30.2 Active 722025446 Problem Persistent headaches R51 Active 88569664 Problem 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 371506739 Problem Hemorrhoids, unspecified hemorrhoid type K64.9 Active 13408263 Problem Nevus D22.9 Active 77417052 ALLERGIES Substance Reaction Event Type Date Status Latuda hives Drug Allergy Jul, Active Codeine Unknown Non Drug Allergy Jul, Active SOCIAL HISTORY No smoking Hx information available PLAN OF CARE Activity Details Follow Up prn Reason:#11 RC VITAL SIGNS Height 69 in 2016-07-24 Blood pressure systolic 91 mmHg 2016-07-24 Blood pressure diastolic 67 mmHg 2016-07-24 MEDICATIONS Medication Instructions Dosage Frequency Start Date End Date Duration Status HydrOXYzine Pamoate 50 mg Orally 3 times a day for anxiety 1 capsule as needed Jul, Active Cranberry Fruit 405 MG Active Seroquel XR 150 MG Orally Once a day at hs 1 tablet Jul, Active Toprol XL 50 MG Orally Once at night 1 tablet May, Active Amoxicillin 500 MG Orally 4 times daily 1 capsule 7 days Active Hydrocortisone 1 % Externally Twice a day 1 application to affected area May, Active Flonase 50 MCG/DOSE Nasally twice a day 1 spray in each nostril May Active [place] 5-325 MG Orally every 6 hrs 1 tablet as needed 6h 4 days Active Proctofoam HC 1-1 % Rectal Four times a day 1 application as needed 6h Mar, Active Clobetasol Propionate 0.05 % Externally Twice a day 1 application to affected area 12h Mar, Active Sarna 0.5-0.5 % Externally Three times a day 1 application to affected area as needed 8h May, Active Lamictal 100 MG Orally 1/2 tab in AM and 1 full at HS 1 tablet Jul, Active Claritin 10 mg Orally Once a day 1 tablet 24h May, Active Colace 100 MG Orally 2 times a day prn 1 capsule as needed Active RESULTS No Results PROCEDURES Procedure Date Ordered Related Diagnosis Body Site LTD ORAL EVALUATION - PROBLEM FOCUS Jul 24, 2016 IMMUNIZATIONS No Known Immunizations
--- OUTSIDE RECORDS SUMMARY | 2017-07-11 18:35 | XMS REPORT ---
Author VALENTE Alexander Organization [employer] Address Unknown Phone Unavailable Care Team Providers Care Wood Strip Block Floor Installer Name Role Phone VALENTE GUERRA CP Unavailable Allergies No Known Allergies Problems Problem Type Condition Code Onset Dates Condition Status Problem Post-traumatic stress disorder, chronic F43.12 Active Problem Social anxiety disorder F40.10 Active Problem Bipolar II disorder F31.81 Active Problem Acute oral pain 528.9 Active Problem Abdominal pain 789.00 Active Medications Medication Code System Code Instructions Start Date End Date Status Dosage Seroquel [facility] [address]-16 100 MG Orally Once a day Pt must keep appt PLEASE VOUCHER 1 tablet at bedtime Results No Known Results Summary Purpose eClinicalWorks Submission
--- OUTSIDE RECORDS SUMMARY | 2017-07-11 18:35 | XMS REPORT ---
Author VALENTE Alexander Organization [employer] Address Unknown Phone Unavailable Care Team Providers Care Roof Slater Name Role Phone VALENTE GUERRA CP Unavailable [...] Date End Date Status Dosage HydrOXYzine Pamoate [facility] [address]-12 25 MG Orally 3 times a day for anxiety Jul 27, 2015 1 capsule as needed Results No Known Results Summary Purpose eClinicalWorks Submission
--- OUTSIDE RECORDS SUMMARY | 2017-07-11 18:35 | XMS REPORT ---
Author VALENTE Alexander [facility] e[employer] Address Unknown Phone Unavailable Care Team Providers Care Aerodynamics Teacher Name Role Phone VALENTE GUERRA CP Unavailable [...] Active Problem Persistent headaches R51 Active Medications No Known Medications Results No Known Results Summary Purpose [employer]ClinicalWorks Submission
--- OUTSIDE RECORDS SUMMARY | 2017-07-11 18:35 | XMS REPORT ---
Author VALENTE Alexander Organization [employer] Address Unknown Phone Unavailable Care Team Providers Care Shroudman Name Role Phone VALENTE GUERRA CP Unavailable Allergies No Known Allergies Problems Problem Type Condition Code Onset Dates Condition Status Problem Bipolar II disorder F31.81 Active Problem Post-traumatic stress disorder, chronic F43.12 Active Problem History of urinary infection Z87.440 Active Problem Abdominal pain 789.00 Active Problem Social anxiety disorder F40.10 Active Problem Acute oral pain 528.9 Active Medications Medication Code System Code Instructions Start Date End Date Status Dosage Lamictal [facility] [address]-85 100 MG Orally Once a day Jul 27, 2015 1 tablet HydrOXYzine Pamoate [facility] [address]-54 50 mg Orally 3 times a day for anxiety Jul 27, 2015 1 capsule as needed Seroquel XR [facility] [address]-93 150 MG Orally Once a day at hs Jul 27, 2015 1 tablet Results No Known Results Summary Purpose [employer]Works Submission
--- OUTSIDE RECORDS SUMMARY | 2017-07-11 18:41 | XMS REPORT ---
Author Author VALENTE GUERRA [employer] Address Unknown Phone Unavailable Care Team Providers Care Inspector Raw Quartz Name Role Phone VALENTE GUERRA CP Unavailable [...] Date End Date Status Dosage Seroquel XR [facility] [address]-71 150 MG Orally Once a day at hs Jul 27, 2015 1 tablet Results No Known Results Summary Purpose [employer] Submission
--- OUTSIDE RECORDS SUMMARY | 2017-07-11 18:41 | XMS REPORT ---
Author VALENTE Alexander Organization [employer] Address Unknown Phone Unavailable Care Team Providers Care Senior C Software Engineer Name Role Phone VALENTE GUERRA CP Unavailable [...]
--- OUTSIDE RECORDS SUMMARY | 2017-07-11 18:43 | XMS REPORT ---
Author Author VALENTE GUERRA Organization [facility] Address [address] [place] [address] Care Team Providers Care Deportation Examiner Name Role Phone VALENTE GUERRA Unavailable PROBLEMS Type Condition ICD9-CM Code [id number] Code Onset Dates Condition Status SNOMED Code Problem Bipolar II disorder F31.81 Active 72108050 Problem History of urinary infection Z87.440 Active 049675157 Problem Post-traumatic stress disorder, chronic F43.12 Active 95495458 Problem Abdominal pain 789.00 Active 92773060 Problem Acute oral pain 528.9 Active 918738315 Problem Social phobia, generalized F40.11 Active 61947842 Problem Seasonal allergic rhinitis, unspecified allergic rhinitis trigger J30.2 Active 833478226 Problem Persistent headaches R51 Active 57360769 Problem 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
--- OUTSIDE RECORDS SUMMARY | 2017-07-11 18:43 | XMS REPORT ---
Author VALENTE Alexander Organization [employer] Address Unknown Phone Unavailable Care Team Providers Care Wage And Salary Specialist Name Role Phone VALENTE GUERRA CP Unavailable [...] Instructions Start Date End Date Status Dosage Ibuprofen [facility] [address]-51 800 MG Orally Three times a day 1 tablet HydrOXYzine Pamoate [facility] [address]-51 50 MG Orally 3 times a day for anxiety Jul 27, 2015 1 capsule as needed MiraLax [facility] [address]-94 17 gm/dose Orally Once a day January 21, 2015 as directed Lamictal [facility] [address]-26 100 MG Orally Take 1/2 tab (50mg) for 7 days then increase to 1 full tablet and continue Jul 27, 2015 1 tablet Seroquel XR [facility] [address]-17 150 MG Orally Take 4 hours prior to bedtime Jul 27, 2015 1 tablet Toprol XL [facility] [address]-05 50 MG Orally Once at night May 20, 2015 1 tablet Procedures Procedure Coding System Code Date Office Visit, Est Pt., Level 4 CPT-4 88067 Oct 21, 2015 Vital Signs Date/Time: Oct 21, 2015 Blood Pressure Systolic 110 mmHg Weight 139.7 lbs Height 69 in BMI 20.63 Index Blood Pressure Diastolic 70 mmHg Results No Known Results Summary Purpose eClinicalWorks Submission
--- OUTSIDE RECORDS SUMMARY | 2017-07-11 18:43 | XMS REPORT ---
Author Author AIXA DOWNEY Organization [facility] Address [address] [place] [address] Care Team Providers Care Steam Box Operator Name Role Phone AIXA DOWNEY Unavailable PROBLEMS Type Condition ICD9-CM Code [id number] Code Onset Dates Condition Status SNOMED Code Problem Bipolar II disorder F31.81 Active 39199845 Problem History of urinary infection Z87.440 Active 519762432 Problem Post-traumatic stress disorder, chronic F43.12 Active 06924275 Problem Abdominal pain 789.00 Active 91693842 Problem Acute oral pain 528.9 Active 355464130 Problem Social phobia, generalized F40.11 Active 60087776 Problem Seasonal allergic rhinitis, unspecified allergic rhinitis trigger J30.2 Active 960278157 Problem Persistent headaches R51 Active 82015731 Problem 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 448238427 Problem Hemorrhoids, unspecified hemorrhoid type K64.9 Active 26173406 Problem Nevus D22.9 Active 38658654 ALLERGIES Substance Reaction Event Type Date Status Latuda hives Drug Allergy Sep, Active Codeine Unknown Non Drug Allergy Sep, Active SOCIAL HISTORY No smoking Hx information available PLAN OF CARE Activity Details Follow Up 2 - 3 Days Reason:hemorrhoids VITAL SIGNS Height 69 in 2016-10-09 Weight 143.0 lbs 2016-10-09 Temperature 98.8 degrees Fahrenheit 2016-10-09 Heart Rate 72 bpm 2016-10-09 Respiratory Rate 18 2016-10-09 BMI 21.12 kg/m2 2016-10-09 Blood pressure systolic 130 mmHg 2016-10-09 Blood pressure diastolic 94 mmHg 2016-10-09 MEDICATIONS Medication Instructions Dosage Frequency Start Date End Date Duration Status Hydrocortisone 1 % Externally Twice a day 1 application to affected area 12h May, Active Clobetasol Propionate 0.05 % Externally Twice a day 1 application to affected area 12h Mar, Active Flonase 50 MCG/DOSE Nasally twice a day 1 spray in each nostril 12h May Active PredniSONE 20 MG Orally Once a day 2 tablet 24h Sep, 4 Oct, 2016 5 days Active Cranberry Fruit 405 MG Active Claritin 10 mg Orally Once a day 1 tablet 24h May, Active HydrOXYzine Pamoate 50 mg Orally 2 times a day for anxiety 1 capsule as needed Jul, Active Seroquel XR 150 MG Orally Once a day at hs 1 tablet Jul, Active Colace 100 MG Orally 2 times a day prn 1 capsule as needed Active Metoprolol Tartrate 25 MG Orally Twice a day for panic 1 tablet with food Sep, 30 day(s) Active Amoxicillin 500 MG Orally every 12 hrs 1 capsule 12h Sep, Oct, 10 day(s) Active RESULTS No Results PROCEDURES Procedure Date Ordered Related Diagnosis Body Site Office Visit, Est Pt., Level 3 Oct 09, 2016 IMMUNIZATIONS No Known Immunizations
--- OUTSIDE RECORDS SUMMARY | 2017-07-11 18:43 | XMS REPORT ---
Author VALENTE Alexander [employer] Address Unknown Phone Unavailable Care Team Providers Care Power Generation Plant Operator Name Role Phone VALENTE GUERRA CP Unavailable Allergies, Adverse Reactions, Alerts Substance Reaction Event Type N.K.D.A. Info Not Available Non Drug Allergy Problems Problem Type Condition ICD-9 Code Onset Dates Condition Status Problem Abdominal pain 789.00 Active Assessment Bipolar 2 disorder 296.89 Active Problem Acute oral pain 528.9 Active Assessment PTSD (post-traumatic stress disorder) 309.81 Active Assessment Social anxiety disorder 300.23 Active Medications Medication Code System Code Instructions Start Date End Date Status Dosage Celexa [facility] [address]-41 40 MG Orally Once a day 0.5 tablet Toprol XL [facility] [address]-76 25 MG Orally Once a day May 20, 2015 1 tablet Ibuprofen [facility] [address]-79 800 MG Orally Three times a day 1 tablet Latuda [facility] [address]-80 20 MG Orally in the evening with supper May 20, 2015 1 tablet Zofran [facility] [address]-91 4 MG Orally 3 times a day May 15, 2015 1 tablet MiraLax [facility] [address]-29 17 gm/dose Orally Once a day January 21, 2015 as directed Procedures Procedure Coding System Code Date Office Visit, Est Pt., Level 5 CPT-4 24318 May 20, 2015 Vital Signs Date/Time: May 20, 2015 Temperature 98.0 F Weight 145.0 lbs Height 69 in BMI 21.41 Index Blood Pressure Diastolic 84 mmHg Blood Pressure Systolic 120 mmHg Cardiac Monitoring Heart Rate 84 bpm Results No Known Results Summary Purpose eClinicalWorks Submission
--- OUTSIDE RECORDS SUMMARY | 2017-07-11 18:44 | XMS REPORT ---
Author APOORVA Gudino Organization [employer] Address Unknown Phone Unavailable Care Team Providers Care Coil Tier Name Role Phone APOORVA LOPEZ CP Unavailable [...] patient &/family, 45 minutes, established patient CPT-4 08734 Sep 08, 2015 Results No Known Results Summary Purpose [employer]ClinicalWorks Submission
--- OUTSIDE RECORDS SUMMARY | 2017-07-11 18:44 | XMS REPORT ---
Author Author TULIO CLARK [facility] Address Unknown Phone Unavailable Care Team Providers Care Ibm Mainframe Systems Programmer Name Role Phone TULIO CLARK Unavailable Unavailable PROBLEMS Type Condition ICD9-CM Code [id number] Code Onset Dates Condition Status SNOMED Code Problem Acute oral pain 528.9 Active 322795216 Problem Post-traumatic stress disorder, chronic F43.12 Active 22333429 Problem Social anxiety disorder F40.10 Active 88400378 Assessment PTSD (post-traumatic stress disorder) F43.10 May, Active 27331116 Problem Abdominal pain 789.00 Active 80688390 Problem Nevus D22.9 Active 40817666 Problem 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
[2017-07-11] MEDS ORDERED: ALPRAZolam 0.25 MG (XANAX) TAB PO ONE (18:45)
--- OUTSIDE RECORDS SUMMARY | 2017-07-11 18:45 | XMS REPORT ---
Author ANTHONY Chung [facility] [employer] Address Unknown Phone Unavailable Care Team Providers Care Radar Air Traffic Controller Name Role Phone ANTHONY EVANS Unavailable Allergies, Adverse Reactions, Alerts Substance Reaction Event Type Latuda hives Drug Allergy Problems Problem Type Condition Code Onset Dates Condition Status Assessment Muscle cramps R25.2 Active Problem Post-traumatic stress disorder, chronic F43.12 Active Problem Social anxiety disorder F40.10 Active Problem Bipolar II disorder F31.81 Active Assessment Abdominal pain R10.9 Active Assessment Nausea R11.0 Active Problem Acute oral pain 528.9 Active Problem Abdominal pain 789.00 Active Medications Medication Code System Code Instructions Start Date End Date Status Dosage HydrOXYzine Pamoate [facility] [address]-62 25 MG Orally 3 times a day for anxiety Jul 27, 2015 1 capsule as needed [facility] Ibuprofen [facility] [address]-75 200 MG Orally 2 times a day Aug 12, 2015 Aug 22, 2015 1 -2 tablet as needed MiraLax [facility] [address]-65 17 gm/dose Orally Once a day January 21, 2015 as directed Seroquel XR [facility] [address]-58 150 MG Orally Once a day Jul 27, 2015 1 tablet in the evening Toprol XL [facility] [address]-20 50 MG Orally Once a day May 20, 2015 1 tablet Lamictal [facility] [address]-14 25 MG Orally take 1 tablet in the AM for 2 weeks then increase to 2 tablets each morning and continue for depression Jul 27, 2015 1 tablet Ibuprofen [facility] [address]-26 800 MG Orally Three times a day 1 tablet Cyclobenzaprine HCl [facility] [address]-52 10 MG Orally Three times a day AugAug 17, 2015 1 tablet Promethazine HCl [facility] [address]-85 12.5 MG Orally every 6 hrs Aug 12, 2015 Aug 15, 2015 1 tablet as needed Procedures Procedure Coding System Code Date Office Visit, New Pt., Level 3 CPT-4 84675 Aug 12, 2015 Vital Signs Date/Time: Aug 12, 2015 Temperature 97.8 F Weight 150 lbs Height 69 in BMI 22.15 Index Blood Pressure Diastolic 72 mmHg Blood Pressure Systolic 104 mmHg Cardiac Monitoring Heart Rate 74 bpm Results No Known Results Summary Purpose eClinicalWorks Submission
--- OUTSIDE RECORDS SUMMARY | 2017-07-11 18:45 | XMS REPORT ---
Author APOORVA Gudino Organization [employer] Address Unknown Phone Unavailable Care Team Providers Care Laborer Poultry Hatchery Name Role Phone APOORVA LOPEZ CP Unavailable [...] patient &/family, 45 minutes, established patient CPT-4 59297 Aug 12, 2015 Results No Known Results Summary Purpose [employer]ClinicalWorks Submission
--- OUTSIDE RECORDS SUMMARY | 2017-07-11 18:45 | XMS REPORT ---
Author Author ULYSSES DAVIS [employer] Address Unknown Phone Unavailable Care Team Providers Care Brake Reliner Name Role Phone ULYSSES DAVIS CP Unavailable Allergies, Adverse Reactions, Alerts Substance [...] Active Problem Persistent headaches R51 Active Assessment Dental examination Z01.20 Active Problem Abdominal pain 789.00 Active Problem Acute oral pain 528.9 Active Medications Medication Code System Code Instructions Start Date End Date Status Dosage Colace [facility] [address]-71 100 MG Orally 2 times a day prn 1 capsule as needed Carson [facility] [address]-13 5-325 MG Orally every 6 hrs 1 tablet as needed Sarna [facility] [address]-77 0.5-0.5 % Externally Three times a day May 17, 2016 1 application to affected area as needed Toprol XL [facility] [address]-38 50 MG Orally Once at night May 20, 2015 1 tablet Cranberry Fruit [facility] [address]-68 405 MG Orally not defined Amoxicillin [facility] [address]-80 500 MG Orally Three times a day 1 capsule Clobetasol Propionate [facility] [address]-40 0.05 % Externally Twice a day April 06, 2016 1 application to affected area Flonase NDC 0 50 MCG/DOSE Nasally twice a day May 17, 2016 1 spray in each nostril Hydrocortisone [facility] [address]-43 1 % Externally Twice a day May 17, 2016 1 application to affected area Claritin [facility] [address]-36 10 mg Orally Once a day May 17, 2016 1 tablet Proctofoam HC [facility] [address]-89 1-1 % Rectal Four times a day April 06, 2016 1 application as needed Seroquel XR [facility] [address]-64 150 MG Orally Once a day at hs Jul 27, 2015 1 tablet Lamictal [facility] [address]-13 100 MG Orally Once a day Jul 27, 2015 1 tablet HydrOXYzine Pamoate [facility] [address]-04 50 mg Orally 3 times a day for anxiety Jul 27, 2015 1 capsule as needed Procedures Procedure Coding System Code Date INTRAORL-PERIAPICAL 1 FILM 65281 CPT-4 D0220 May 30, 2016 LTD ORAL EVALUATION - PROBLEM FOCUS CPT-4 D0140 May 30, 2016 Vital Signs Date/Time: May 30, 2016 Blood Pressure Diastolic 89 mmHg Blood Pressure Systolic 132 mmHg Results No Known Results Summary Purpose eClinicalWorks Submission
--- OUTSIDE RECORDS SUMMARY | 2017-07-11 18:45 | XMS REPORT ---
Author Author VALENTE GUERRA [facility] Address [address] [place] [address] Care Team Providers Care Manager Resort Name Role Phone VALENTE GUERRA Unavailable PROBLEMS Type Condition ICD9-CM Code [id number] Code Onset Dates Condition Status SNOMED Code Problem Bipolar II disorder F31.81 Active 64670088 Problem History of urinary infection Z87.440 Active 396640231 Problem Post-traumatic stress disorder, chronic F43.12 Active 68165842 Problem Abdominal pain 789.00 Active 45281683 Problem Acute oral pain 528.9 Active 258248214 Problem Social phobia, generalized F40.11 Active 01833351 Problem Seasonal allergic rhinitis, unspecified allergic rhinitis trigger J30.2 Active 476925360 Problem Persistent headaches R51 Active 08791888 Problem 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 044807308 Problem Hemorrhoids, unspecified hemorrhoid type K64.9 Active 78626811 Problem Nevus D22.9 Active 92406120 ALLERGIES Substance Reaction Event Type Date Status Latuda hives Drug Allergy Sep, Active Codeine Unknown Non Drug Allergy Sep, Active SOCIAL HISTORY No smoking Hx information available PLAN OF CARE Activity Details Follow Up 3 Months Reason: VITAL SIGNS Height 69 in 2016-09-26 Weight 142.2 lbs 2016-09-26 Heart Rate 80 bpm 2016-09-26 Respiratory Rate 20 2016-09-26 BMI 21.00 kg/m2 2016-09-26 Blood pressure systolic 124 mmHg 2016-09-26 Blood pressure diastolic 75 mmHg 2016-09-26 MEDICATIONS Medication Instructions Dosage Frequency Start Date End Date Duration Status Clobetasol Propionate 0.05 % Externally Twice a day 1 application to affected area 12h 28 Mar, 2016 Active Cranberry Fruit 405 MG Active Lamictal 100 MG Orally 1/2 tab in AM and 1 full at HS 1 tablet Jul, Active Toprol XL 50 mg Orally Once at night 1 tablet May, Active Hydrocortisone 1 % Externally Twice a day 1 application to affected area 12May, Active Colace 100 MG Orally 2 times a day prn 1 capsule as needed Active Claritin 10 mg Orally Once a day 1 tablet 24h May, Active Flonase 50 MCG/DOSE Nasally twice a day 1 spray in each nostril 12may Active Seroquel XR 150 MG Orally Once a day at hs 1 tablet Jul, Active HydrOXYzine Pamoate 50 mg Orally 2 times a day for anxiety 1 capsule as needed Jul, Active RESULTS No Results PROCEDURES Procedure Date Ordered Related Diagnosis Body Site Office Visit, Est Pt., Level 4 Sep 26, 2016 IMMUNIZATIONS No Known Immunizations
--- OUTSIDE RECORDS SUMMARY | 2017-07-11 18:46 | XMS REPORT ---
Author VALENTE Alexander Organization [employer] Address Unknown Phone Unavailable Care Team Providers Care Contract Attorney Name Role Phone VALENTE GUERRA CP Unavailable [...] Start Date End Date Status Dosage Lamictal [facility] [address]-51 25 MG Orally take 1 tablet in the AM for 2 weeks then increase to 2 tablets each morning and continue for depression Jul 27, 2015 1 tablet Seroquel XR [facility] [address]-91 150 MG Orally Once a day Jul 27, 2015 1 tablet in the evening Ibuprofen [facility] [address]-64 800 MG Orally Three times a day 1 tablet HydrOXYzine Pamoate [facility] [address]-50 25 MG Orally 3 times a day for anxiety Jul 27, 2015 1 capsule as needed MiraLax [facility] [address]-64 17 gm/dose Orally Once a day January 21, 2015 as directed Toprol XL [facility] [address]-61 50 MG Orally Once a day May 20, 2015 1 tablet Procedures Procedure Coding System Code Date Office Visit, Est Pt., Level 4 CPT-4 38652 Jul 27, 2015 Vital Signs Date/Time: Jul 27, 2015 Cardiac Monitoring Heart Rate 76 bpm Weight 148.7 lbs Height 69 in BMI 21.96 Index Blood Pressure Diastolic 75 mmHg Blood Pressure Systolic 100 mmHg Results No Known Results Summary Purpose eClinicalWorks Submission
--- NOTE | 2017-07-11 18:49 | ED Psychosocial ---
General Chief Complaint: Psych/Social Disorder Stated Complaint: PANIC ATTACK,PTSD Nursing Triage Note: PATIENT STATES THAT SHE IS HAVING A PANIC ATTACK RELATED TO HER SON WITH AUTISM BITING HER THUMB. SHE DREAMED LAST NIGHT THAT SOMEONE CUT HER FINGER OFF AND NOW SHE IS CONCERNED THAT IT IS INFECTED. PATIENT STATES SHE COULDNT LEAVE HER HOME TODAY BECAUSE OF HER ANXIETY AND CHEST PAIN. Source: patient Exam Limitations: no limitations History of Present Illness Time seen by provider: 18:27 Allergies and Home Medications Allergies Coded Allergies: codeine (Unverified Allergy, Severe, SWELLING OF THE THROAT, 12/04/15) PT DENIES BEING ALLERGIC TO TYLENOL #3, 12/04/15. latex (Unverified Allergy, Unknown, 09/05/14) Home Medications Hydroxyzine Pamoate 50 Mg Capsule, 50 MG PO TID PRN for ANXIETY, (Reported) LAST FILLED #90 2-5-16 Quetiapine Fumarate 150 Mg Tab.er.24h, 150 MG PO HS, (Reported) LAST FILLED #30 2-5-16 Sulfamethoxazole/Trimethoprim 1 Each Tablet, 1 EACH PO UD, #21 Ref 0 2 tabs po x1 dose, then 1 po BID. Prescribed by: WILLIE GAINES on 07/11/17 1851 Past Enzkstf-Xzvdrt-Ntzjng Hx Patient Social History Alcohol Use: Occasionally Uses Recreational Drug Use: No Drug of Choice: cannibus Smoking Status: Never a Smoker Recent Foreign Travel: No Contact w/Someone Who Travel: No Recent Infectious Disease Expo: No Recent Hopitalizations: No Physical Abuse: No Sexual Abuse: No Immunizations Up To Date Tetanus Booster (TDap): Unknown PED Vaccines UTD: Yes Date of Influenza Vaccine: Jun 10, 2015 Seasonal Allergies Seasonal Allergies: No Surgeries History of Surgeries: Yes (TENDON RELEASE/R THUMB, oral, RT ELBOW) Surgeries: Abdominal, Appendectomy, Section, Gallbladder, Orthopedic, Tubal Ligation Respiratory History of Respiratory Disorde: No Currently Using CPAP: No Currently Using BIPAP: No Cardiovascular History of Cardiac Disorders: No Neurological History of Neurological Disord: No Reproductive System Hx Reproductive Disorders: Yes (left ovarian mass) Sexually Transmitted Disease: No Female Reproductive Disorders: Ovarian Cyst SHOW CARD WRITER History: Tubal Ligation Genitourinary Genitourinary Disorders: UTI-Chronic Gastrointestinal History of Gastrointestinal Di: Yes Gastrointestinal Disorders: Chronic Constipation Musculoskeletal History of Musculoskeletal Dis: No Endocrine History of Endocrine Disorders: No Cancer History of Cancer: No (MASS ON LEFT OVERY. ) Psychosocial History of Psychiatric Problem: Yes Behavioral Health Disorders: Anxiety, Bipolar Suicide Risk Score: 0 Integumentary History of Skin or Integumenta: No Blood Transfusions History of Blood Disorders: No Adverse Reaction to a Blood Tr: No Family Medical History Significant Family History: No Pertinent Family Hx Family Medial History: Chronic constipation 19 MOTHER FH: colonic polyps 19 MOTHER Hypertension 19 FATHER 19 MOTHER Kidney stone 19 FATHER 19 MOTHER Physical Exam Vital Signs Vital Sign - Last 12Hours 07/11/17 17:35 Pulse 100 Resp 22 B/P (MAP) 137/86 Pulse Ox 100 O2 Delivery Room Air Capillary Refill : Less Than 3 Seconds Progress/Results/Core Measures Results/Orders My Orders Orders - WILLIE GAINES Alprazolam Tablet (Xanax Tablet) (07/11/17 18:45) Medications Given in ED Current Medications Medications Dose Ordered Sig/Zee Route Start Time Stop Time Status Last Admin Dose Admin Alprazolam 0.5 mg ONCE ONCE PO 07/11/17 18:45 07/11/17 18:46 DC 07/11/17 18:48 0.5 MG Vital Signs/I&O Vital Sign - Last 12Hours 07/11/17 17:35 Pulse 100 Resp 22 B/P (MAP) 137/86 Pulse Ox 100 O2 Delivery Room Air Blood Pressure Mean: 103 Departure Impression Impression: Primary Impression: Cellulitis of thumb, right Additional Impression: Anxiety attack Disposition: 01 HOME, SELF-CARE Condition: Improved Departure-Patient Inst. Decision time for Depature: 18:44 Referrals: NO,LOCAL PHYSICIAN (PCP/Family) Primary Care Physician Patient Instructions: Cellulitis (Skin Infection), Adult (DC) Add. Discharge Instructions: All discharge instructions reviewed with patient and/or family. Voiced understanding. Medications as instructed. Ibuprofen 800 mg by mouth every 8 hours as needed for pain. Tylenol extra strength [id number] as directed for pain. Shower with antibacterial soap. A lengthy right hand on pillows above the level of the heart. Follow-up with your primary care provider at [facility] for recheck in the next 2-3 days, call for appointment time. Return to the emergency department for worsened symptoms or any other concerns. Scripts Sulfamethoxazole/Trimethoprim (Bactrim Ds Tablet) 1 Each Tablet 1 EACH PO UD, #21 TAB 0 Refills 2 tabs po x1 dose, then 1 po BID. Prov: WILLIE GAINES 07/11/17 WILLIE GAINES Jul 11, 2017 18:49
[2017-07-11] MEDS ORDERED: SULF1TAB35 PO (18:51)
[2017-07-11 18:55] VITALS: BP 137/86
== END 2017-07-11 18:55 | disposition home or self-care (01) ==
LOC: EDUNIT# 17:27 → ER 17:29
DX: F41.0 Panic disorder [episodic paroxysmal anxiety] (principal); L03.111 Cellulitis of right axilla; F41.9 Anxiety disorder, unspecified; F31.9 Bipolar disorder, unspecified; Z98.51 Tubal ligation status; Z87.42 Personal history of other diseases of the female genital tract; Z90.49 Acquired absence of other specified parts of digestive tract; Z87.59 Personal history of other complications of pregnancy, childbirth and the puerperium
CPT/HCPCS: 99283

== ENCOUNTER 2017-09-07 17:07 | Emergency (ER) | payer MEDICAID ==
[~2017-09-07] VITALS: Ht 175.3 cm; Wt 63.5 kg
[~2017-09-07 17:07] MED LIST changes: -METO-272 PO; +METO-370 PO; +SULF1TAB35 PO
--- OUTSIDE RECORDS SUMMARY | 2017-09-07 17:15 | XMS REPORT | Clinical Summary ---
Author Author [facility] Organization [facility] Address Unknown Phone Unavailable Support Name Relationship Address Phone , [place] [address] Allergies Active Allergy Reactions Severity Noted Date Comments Droperidol 04/30/2013 Unknown reaction Current Medications No known medications Active Problems Problem Noted Date Mood disorder (HCC) 04/30/2013 Resolved Problems Problem Noted Date Resolved Date Suicidal behavior 05/01/2013 05/05/2013 Social History Tobacco Use Types Packs/Day Years Used Date Never Smoker Alcohol Use Drinks/Week oz/Week Comments Yes occasionally on the weekends Sex Assigned at Date Recorded Not on file Last Filed Vital Signs Vital Sign Reading Time Taken Blood Pressure 111/68 05/05/2013 6:59 AM CDT Pulse 76 05/05/2013 6:59 AM CDT Temperature 36.7 C (98.1 F) 05/05/2013 6:59 AM CDT Respiratory Rate 14 05/05/2013 6:59 AM CDT Oxygen Saturation 99% 04/30/2013 5:13 PM CDT Inhaled Oxygen - - Concentration Weight 63.5 kg (140 lb) 04/30/2013 5:13 PM CDT Height 172.7 cm (5' 8") 04/30/2013 5:13 PM CDT Body Mass Index 21.29 04/30/2013 5:13 PM CDT Plan of Treatment Health Maintenance Due Date Last Done Comments Varicella Vaccines (1 of 1994 2 - 2 Dose Adolescent Series) DTaP,Tdap,and Td Vaccines 2000 (1 - Tdap) CERVICAL CANCER SCREENING 2002 Influenza Vaccine (#1) 2017 Results Not on filefrom Last 3 Months
--- OUTSIDE RECORDS SUMMARY | 2017-09-07 17:15 | XMS REPORT ---
Author Author APOORVA LOPEZ Organization [facility] Address [address] [place] [address] Care Team Providers Care Ginger Farmer Name Role Phone APOORVA LOPEZ Unavailable PROBLEMS Type Condition ICD9-CM Code [id number] Code Onset Dates Condition Status SNOMED Code Problem Bipolar II disorder F31.81 Active 86615594 Problem History of urinary infection Z87.440 Active 951190796 Problem Post-traumatic stress disorder, chronic F43.12 Active 52929012 Problem Abdominal pain 789.00 Active 45249668 Problem Acute oral pain 528.9 Active 022621476 Problem Social phobia, generalized F40.11 Active 71875677 Problem Seasonal allergic rhinitis, unspecified allergic rhinitis trigger J30.2 Active 007180055 Problem Persistent headaches R51 Active 68072611 Problem 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 003428430 Problem Hemorrhoids, unspecified hemorrhoid type K64.9 Active 11513005 Problem Nevus D22.9 Active 26334737 ALLERGIES No Information SOCIAL HISTORY Never Assessed PLAN OF CARE Activity Details Follow Up prn Reason: VITAL SIGNS MEDICATIONS Unknown Medications RESULTS No Results PROCEDURES Procedure Date Ordered Result Body Site Psych diagnostic evaluation, established patient January 24, 2017 IMMUNIZATIONS No Known Immunizations MEDICAL (GENERAL) HISTORY Type Description Date Medical History depression Medical History anxiety Medical History bipolar disorder: was admitted to [facility] in - April 2013 Medical History leaking appendix: 13 years ago during - had it removed after delivery Medical History Social anxiety disorder Surgical History tubal ligation 2007 Surgical History cholecystectomy 2001 Surgical History appendectomy 2000 Surgical History breast biopsy X2 1998 Surgical History orthopedic surgery: right elbow surgery, right wrist tendon release - Dr. Schmidt - [place] 1997, 2014 Hospitalization History Sepsis--[facility]I 11/2015
--- OUTSIDE RECORDS SUMMARY | 2017-09-07 17:15 | XMS REPORT ---
Author Author DARCI SHELDON Organization [facility] Address [address] [place] [address] Care Team Providers Care Ice Cream Maker Name Role Phone DARCI SHELDON Unavailable PROBLEMS Type Condition ICD9-CM Code [id number] Code Onset Dates Condition Status SNOMED Code Problem Bipolar II disorder F31.81 Active 74444801 Problem History of urinary infection Z87.440 Active 547702428 Problem Post-traumatic stress disorder, chronic F43.12 Active 85718723 Problem Abdominal pain 789.00 Active 72430399 Problem Acute oral pain 528.9 Active 349140514 Problem Social phobia, generalized F40.11 Active 73436205 Problem Seasonal allergic rhinitis, unspecified allergic rhinitis trigger J30.2 Active 527836424 Problem Persistent headaches R51 Active 59118144 Problem 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 830984759 Problem Hemorrhoids, unspecified hemorrhoid type K64.9 Active 60198596 Problem Nevus D22.9 Active 41627902 ALLERGIES Substance Reaction Event Type Date Status Latuda hives Drug Allergy January, Active Lamictal hives Drug Allergy January, Active Codeine Unknown Non Drug Allergy January, Active SOCIAL HISTORY Never Assessed PLAN OF CARE VITAL SIGNS Height 69 in 2017-01-24 Weight 149.6 lbs 2017-01-24 Temperature 98.7 degrees Fahrenheit 2017-01-24 Heart Rate 76 bpm 2017-01-24 Respiratory Rate 20 2017-01-24 BMI 22.09 kg/m2 2017-01-24 Blood pressure systolic 126 mmHg 2017-01-24 Blood pressure diastolic 90 mmHg 2017-01-24 MEDICATIONS Medication Instructions Dosage Frequency Start Date End Date Duration Status HydrOXYzine Pamoate 50 mg Orally 2 times a day for anxiety 1 capsule as needed Jul, Active Ibuprofen 200 MG Orally every 6 hrs 1 tablet with food or milk as needed 6h Active Metoprolol Tartrate 25 MG Orally Twice a day for panic 1 tablet with food Sep, Active Naproxen 500 mg Orally every 12 hrs 1 tablet as needed 12h January, Active Cyclobenzaprine HCl 10 mg Orally 2 times a day 1 tablet as needed 12h January, Active Seroquel XR 150 MG Orally Once a day at hs 1 tablet Jul, Active PredniSONE 20 mg Orally Once a day 2 tablets 24h January, January, 05 days Active RESULTS No Results PROCEDURES No Known procedures IMMUNIZATIONS No Known Immunizations MEDICAL (GENERAL) HISTORY Type Description Date Medical History depression Medical History anxiety Medical History bipolar disorder: was admitted to [facility] in - April 2013 Medical History leaking appendix: 13 years ago during - had it removed after delivery Medical History Social anxiety disorder Surgical History tubal ligation 2007 Surgical History cholecystectomy 2001 Surgical History appendectomy 2000 Surgical History breast biopsy X2 1998 Surgical History orthopedic surgery: right elbow surgery, right wrist tendon release - Dr. Schmidt - [place], [place] 1997, 2014 Hospitalization History Sepsis--[facility]I 11/2015
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
[2017-09-07] MEDS ORDERED: METO-333 (17:25)
[2017-09-07 17:38] LABS: BILIRUBIN,URINE NEGATIVE (NEGATIVE); CLARITY,URINE SLIGHTLY CLOUDY; COLOR,URINE YELLOW; GLUCOSE, URINE (UA) NEGATIVE (NEGATIVE); KETONES,URINE NEGATIVE (NEGATIVE); LEUKOCYTE ESTERASE ,URINE 1+ (NEGATIVE); NITRITE,URINE NEGATIVE (NEGATIVE); PH,URINE 7 (5-9); PROTEIN,URINE 1+ (NEGATIVE); UROBILINOGEN,URINE 1 MG/DL (NORMAL)
[2017-09-07 17:45] LABS: BACTERIA,URINE FEW /HPF; SQUAMOUS EPITHELIAL CELL,UR >50 /HPF
--- NOTE | 2017-09-07 18:02 | ED General ---
General Chief Complaint: -Female Stated Complaint: BACK PAIN, PT STATES KIDNEY ISSUES Nursing Triage Note: States that she suffers from renal reflux and just completed antibiotics yesterday. C/O pain with urination and has lower back pain since lifting son into shopping cart [employer]EL[employer] Nursing Sepsis Screen: No Definite Risk Source of Information: Patient Exam Limitations: No Limitations History of Present Illness Time Seen by Provider: 18:05 Timing/Duration: 1/2 Hour Allergies and Home Medications Allergies Coded Allergies: codeine (Unverified Allergy, Severe, SWELLING OF THE THROAT, 09/07/17) PT DENIES BEING ALLERGIC TO TYLENOL #3, 12/04/15. latex (Unverified Allergy, Unknown, 09/05/14) Home Medications Hydroxyzine Pamoate 50 Mg Capsule, 50 MG PO TID PRN for ANXIETY, (Reported) LAST FILLED #90 5-16 Metoprolol Tartrate 25 Mg Tablet, (Reported) Quetiapine Fumarate 150 Mg Tab.er.24h, 150 MG PO HS, (Reported) LAST FILLED #30 2-5-16 Past Mncbcod-Citxdf-Tlvxqs Hx Patient Social History Alcohol Use: Denies Use Recreational Drug Use: Yes (THC) Drug of Choice: cannibus Smoking Status: Never a Smoker 2nd Hand Smoke Exposure: No Recent Foreign Travel: No Contact w/Someone Who Travel: No Recent Infectious Disease Expo: No Recent Hopitalizations: No Physical Abuse: No Sexual Abuse: No Mistreated: No Fear: No Immunizations Up To Date Tetanus Booster (TDap): Unknown PED Vaccines UTD: Yes Date of Influenza Vaccine: Jun 10, 2015 Seasonal Allergies Seasonal Allergies: No Surgeries History of Surgeries: Yes (TENDON RELEASE/R THUMB, oral, RT ELBOW) Surgeries: Abdominal, Appendectomy, Section, Gallbladder, Orthopedic, Tubal Ligation Respiratory History of Respiratory Disorde: No Currently Using CPAP: No Currently Using BIPAP: No Cardiovascular History of Cardiac Disorders: No Neurological History of Neurological Disord: No Reproductive System Hx Reproductive Disorders: Yes (left ovarian mass) Sexually Transmitted Disease: No 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 ) Psychosocial History of Psychiatric Problem: Yes Behavioral Health Disorders: Anxiety, Bipolar Suicide Risk Score: 0 Integumentary History of Skin or Integumenta: No Blood Transfusions History of Blood Disorders: No Adverse Reaction to a Blood Tr: No Family Medical History Significant Family History: No Pertinent Family Hx Family Medial History: Chronic constipation 19 MOTHER FH: colonic polyps 19 MOTHER Hypertension 19 FATHER 19 MOTHER Kidney stone 19 FATHER 19 MOTHER Physical Exam Vital Signs Vital Sign - Last 12Hours 09/07/17 17:20 Temp 98.3 Pulse 81 Resp 18 B/P (MAP) 129/97 (108) Pulse Ox 99 Capillary Refill : Less Than 3 Seconds Progress/Results/Core Measures Suspected Sepsis Recent Fever Within 48 Hours: No Infection Criteria Present: None New/Unexplained Altered Menta: No Sepsis Screen: No Definite Risk Sepsis Diagnosis: SIRS Temperature:98.3 Pulse: 81 Respiratory Rate: 18 Blood Pressure 129 /97 Mean: 108 Results/Orders Lab Results Laboratory Tests Test 09/07/17 17:12 Range/Units Urine Color YELLOW Urine Clarity SLIGHTLY CLOUDY Urine pH 7 5-9 Urine Specific [place] 1.010 L 1.016-1.022 Urine Protein 1+ H NEGATIVE Urine Glucose (UA) NEGATIVE NEGATIVE Urine Ketones NEGATIVE NEGATIVE Urine Nitrite NEGATIVE NEGATIVE Urine Bilirubin NEGATIVE NEGATIVE Urine Urobilinogen 1 NORMAL MG/DL Urine Leukocyte Esterase 1+ H NEGATIVE Urine RBC (Auto) NEGATIVE NEGATIVE Urine RBC NONE /HPF Urine WBC 2-5 /HPF Urine Squamous Epithelial Cells >50 H /HPF Urine Crystals NONE /LPF Urine Bacteria FEW H /HPF Urine Casts NONE /LPF Urine Mucus SMALL H /LPF Urine Culture Indicated NO My Orders Orders - WILLIE GAINES Ua Culture If Indicated (09/07/17 17:31) Ketorolac Injection (Toradol Injection) (09/07/17 18:08) Orphenadrine Injection (Norflex Injectio (09/07/17 18:08) Vital Signs/I&O Vital Sign - Last 12Hours 09/07/17 17:20 Temp 98.3 Pulse 81 Resp 18 B/P (MAP) 129/97 (108) Pulse Ox 99 Capillary Refill : Less Than 3 Seconds Blood Pressure Mean: 108 Departure Impression Impression: Primary Impression: Strain of muscle and tendon of back wall of thorax, initial encounter Disposition: 01 HOME, SELF-CARE Condition: Improved Departure-Patient Inst. Decision time for Depature: 18:16 Referrals: NO,LOCAL PHYSICIAN (PCP/Family) Primary Care Physician Patient Instructions: Muscle Strain (DC) Add. Discharge Instructions: All discharge instructions reviewed with patient and/or family. Voiced understanding. Medications as instructed. Tylenol Extra Strength over-the- counter as directed for pain. No lifting, pushing, pulling, twisting, bending, climbing 7 days. Ice pack for 20 minute intervals as needed for pain for 2-3 days, then heating pad or pack as needed. Follow-up with Dr. Clark as an outpatient for recheck if no improvement in symptoms in 7-10 days. Return to the emergency department for worsened symptoms, bowel incontinence, bladder incontinence, or any other concerns. Scripts Meloxicam (Mobic) 15 Mg Tablet 15 MG PO DAILY Y for pain, #14 TAB 0 Refills Prov: WILLIE GAINES 09/07/17 Cyclobenzaprine HCl (Cyclobenzaprine HCl) 10 Mg Tablet 10 MG PO Q8H Y for SPASMS, #14 TAB 0 Refills Prov: WILLIE GAINES 09/07/17 WILLIE GAINES Sep 07, 2017 18:02
[2017-09-07] MEDS ORDERED: ORPHENADRINE 60 MG/2 ML (NORFLEX) AMP IV STA (18:08)
[2017-09-07] MEDS ORDERED: KETOROLAC 30 MG/ML VIAL IVP STA (18:08)
[2017-09-07] MEDS ORDERED: CYCL10TA9 PO (18:18)
[2017-09-07] MEDS ORDERED: MELO15TA14 PO (18:18)
[2017-09-07] MEDS ORDERED: HYDROcodone/APAP 7.5 MG/325 MG (LORTAB, LORCET PLUS) TABLET PO STA (19:00)
[2017-09-07 19:10] VITALS: BP 127/76
== END 2017-09-07 19:10 | disposition home or self-care (01) ==
LOC: EDUNIT# 17:07 → ER 17:10
DX: S29.012A Strain of muscle and tendon of back wall of thorax, initial encounter (principal); F41.9 Anxiety disorder, unspecified; F31.9 Bipolar disorder, unspecified; F12.10 Cannabis abuse, uncomplicated; Z90.49 Acquired absence of other specified parts of digestive tract; Z87.59 Personal history of other complications of pregnancy, childbirth and the puerperium; Z98.51 Tubal ligation status; Z87.448 Personal history of other diseases of urinary system; Z87.19 Personal history of other diseases of the digestive system; X50.0XXA Overexertion from strenuous movement or load, initial encounter
CPT/HCPCS: 81000

== ENCOUNTER 2017-11-24 20:20 | Emergency (ER) | payer MEDICAID ==
[~2017-11-24] VITALS: Ht 175.3 cm; Wt 68.0 kg
[~2017-11-24 20:20] MED LIST changes: +CYCL10TA9 PO; +MELO15TA14 PO; +METO-333
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
[2017-11-24] MEDS ORDERED: NAPR-1071 PO (21:16)
[2017-11-24] MEDS ORDERED: CYCL5TAB PO (21:16)
[2017-11-24] MEDS ORDERED: CYCLOBENZAPRINE 10 MG (FLEXERIL) TAB PO SCH (21:30)
[2017-11-24] MEDS ORDERED: IBUPROFEN 800 MG (MOTRIN) TAB PO ONE (21:30)
[2017-11-24 21:43] VITALS: BP 132/74
== END 2017-11-24 21:43 | disposition home or self-care (01) ==
LOC: EDUNIT# 20:20 → ER 20:22
DX: M54.5 Low back pain (principal); F41.9 Anxiety disorder, unspecified; F31.9 Bipolar disorder, unspecified; Z88.5 Allergy status to narcotic agent; Z91.040 Latex allergy status; Z80.0 Family history of malignant neoplasm of digestive organs; Z90.49 Acquired absence of other specified parts of digestive tract; Z87.59 Personal history of other complications of pregnancy, childbirth and the puerperium; Z98.51 Tubal ligation status; Z87.448 Personal history of other diseases of urinary system; Z87.19 Personal history of other diseases of the digestive system; V49.40XA Driver injured in collision with unspecified motor vehicles in traffic accident, initial encounter; Y92.410 Unspecified street and highway as the place of occurrence of the external cause
CPT/HCPCS: 72131

== ENCOUNTER 2017-12-04 18:19 | Emergency (ER) | payer MEDICAID ==
[~2017-12-04] VITALS: Ht 175.3 cm; Wt 65.8 kg
[~2017-12-04 18:19] MED LIST changes: +CYCL5TAB PO; +NAPR-1071 PO
--- OUTSIDE RECORDS SUMMARY | 2017-12-04 18:26 | XMS REPORT | Clinical Summary ---
Author Author [facility] Organization [facility] Address Unknown Phone Unavailable Care Team Providers Care Detailer Furniture Name Role Phone PP Unavailable Allergies Active Allergy Reactions Severity Noted Date [...]
--- NOTE | 2017-12-04 18:58 | ED GI ---
General Chief Complaint: Abdominal/GI Problems Stated Complaint: BLOODY STOOL, ABD PAIN Nursing Triage Note: PT AMBULATES TO ROOM 3 PT CO OF CONSTIPATION X 2 WEEKS AND HEMORRHOID Sepsis Screen: No Definite Risk Source of Information: Patient, Spouse Exam Limitations: No Limitations History of Present Illness Date Seen by Provider: Dec 04, 2017 Time Seen by Provider: 18:44 Initial Comments Patient presents to the ER by private conveyance with a chief complaint she has not had a bowel movement for 2 weeks now. She denies using any opiates. She says she's been eating a handful of fiber one cereal in a cup of yogurt every morning as well as having 2 Colace daily and the last 5 days she's been also using an enema with no results. She says she has a long chronic history of constipation and usually goes week or 2 without having a bowel movement. She says her constipation has gotten so bad in the past that has caused urinary obstruction resulting in a severe urinary tract infection and hospitalization and IV antibiotics until months ago. Patient says she is not having any painful urination now but she is not able to urinate either. She has had no fevers chills, shortness of breath but she does feel a little left chest pain is made worse by deep inspiration. She is not having a cough. The patient says she's had some blood streaks in her stool because she has a history of large hemorrhoids. She is referred to a local general surgeon who did not want to do anything about the hemorrhoids. She's says they are not painful right now but they do get worse when she is constipated. On the patient also says she thinks she has inflammatory breast cancer because she was reading online and she has all the symptoms of this including bilateral breast swelling and tenderness she says she cannot be because she had a bilateral tubal ligation. She has not brought this up to her primary care physician nor has she had any imaging of her breasts. Allergies and Home Medications Allergies Coded Allergies: codeine (Unverified Allergy, Severe, SWELLING OF THE THROAT, 09/07/17) PT DENIES BEING ALLERGIC TO TYLENOL #3, 12/04/15. latex (Unverified Allergy, Unknown, 09/05/14) Home Medications Hydroxyzine Pamoate 50 Mg Capsule, 50 MG PO TID PRN for ANXIETY, (Reported) LAST FILLED #90 10-15-15 Quetiapine Fumarate 150 Mg Tab.er.24h, 150 MG PO HS, (Reported) LAST FILLED #30 [phone] Patient Home Medication List Home Medication List Reviewed: Yes Review of Systems Constitutional: No chills, No diaphoresis, No fever, No malaise EENTM: No Blurred Vision, No Double Vision Respiratory: Denies Cough, Denies Shortness of Air Cardiovascular: See HPI, Chest Pain, Denies Edema, Denies Irregular Heart Rate , Denies Lightheadedness, Denies Palpitations, Denies Syncope Gastrointestinal: Abdominal Pain (03/19), Blood Streaked Stools, Constipated, Denies Diarrhea, Denies Difficulty Swallowing, Nausea, Denies Vomiting Genitourinary: Denies Burning, Denies Discharge, Denies Drainage, Pain Musculoskeletal: No back pain, No joint pain Skin: No change in color, No pruritus, No rash Psychiatric/Neurological: Denies Headache, Denies Numbness Past Fjztovt-Trtflm-Uyxqjm Hx Patient Social History Alcohol Use: Denies Use Recreational Drug Use: Yes Drug of Choice: cannibus Smoking Status: Never a Smoker 2nd Hand Smoke Exposure: No Recent Foreign Travel: No Contact w/Someone Who Travel: No Recent Infectious Disease Expo: No Recent Hopitalizations: No Physical Abuse: No Sexual Abuse: No Immunizations Up To Date Tetanus Booster (TDap): Unknown PED Vaccines UTD: Yes Date of Influenza Vaccine: Jun 10, 2015 Seasonal Allergies Seasonal Allergies: No Surgeries History of Surgeries: Yes (TENDON RELEASE/R THUMB, ORAL, RT ELBOW) Surgeries: Abdominal, Appendectomy, Section, Gallbladder, Orthopedic, Tubal Ligation Respiratory History of Respiratory Disorde: No Currently Using CPAP: No Currently Using BIPAP: No Cardiovascular History of Cardiac Disorders: No Neurological History of Neurological Disord: No Reproductive System Hx Reproductive Disorders: Yes (left ovarian mass) Sexually Transmitted Disease: No 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 ) Psychosocial History of Psychiatric Problem: Yes Behavioral Health Disorders: Anxiety, Bipolar Suicide Risk Score: 0 Integumentary History of Skin or Integumenta: No Blood Transfusions History of Blood Disorders: No Adverse Reaction to a Blood Tr: No Family Medical History Significant Family History: No Pertinent Family Hx Family Medial History: Chronic constipation 19 MOTHER FH: colonic polyps 19 MOTHER Hypertension 19 FATHER 19 MOTHER Kidney stone 19 FATHER 19 MOTHER Physical Exam Vital Signs VS - Last 72 Hours, by Label 12/04/17 18:25 Temp 97.9 Pulse 89 Resp 18 B/P (MAP) 123/67 (85) Pulse Ox 99 Capillary Refill : Less Than 3 Seconds General Appearance: WD/WN, no apparent distress HEENT: PERRL/EOMI, pharynx normal Neck: non-tender, normal inspection Respiratory: chest non-tender, lungs clear, normal breath sounds, no respiratory distress, no accessory muscle use Cardiovascular: normal peripheral pulses, regular rate, rhythm, no edema, no murmur Peripheral Pulses: 2+ Dorsalis Pedis (R), 2+ Left Dors-Pedis (L) Gastrointestinal: normal bowel sounds (slow end of normal bowel sounds), no organomegaly, No distended, No guarding, No rebound, tenderness (especially in the suprapubic region with a barely palpable bladder just above the pubis symphysis.) Rectal: hemorrhoids (large nonthrombosed non-inflamed, tender knuckle sized external hemorrhoids present on all quadrants. Too tender to do a digital rectal exam.), tenderness Extremities: normal inspection, no pedal edema, normal capillary refill Neurologic/Psychiatric: alert, oriented x 3 Skin: normal color, warm/dry Progress/Results/Core Measures Results/Orders Lab Results Laboratory Tests Test 12/04/17 19:52 12/04/17 20:50 Range/Units White Blood Count 7.2 4.3-11.0 10^3/uL Red Blood Count 4.20 L 4.35-5.85 10^6/uL Hemoglobin 13.1 11.5-16.0 G/DL Hematocrit 37 35-52 % Mean Corpuscular Volume 88 80-99 FL Mean Corpuscular Hemoglobin 31 25-34 PG Mean Corpuscular Hemoglobin Concent 35 32-36 G/DL Red Cell Distribution Width 11.7 10.0-14.5 % Platelet Count 199 130-400 10^3/uL Mean Platelet Volume 10.2 7.4-10.4 FL Sodium Level 139 135-145 MMOL/L Potassium Level 3.8 3.6-5.0 MMOL/L Chloride Level 104 98-107 MMOL/L Carbon Dioxide Level 24 21-32 MMOL/L Anion Gap 11 5-14 MMOL/L Blood Urea Nitrogen 13 7-18 MG/DL Creatinine 0.75 0.60-1.30 MG/DL Estimat Glomerular Filtration Rate > 60 BUN/Creatinine Ratio 17 Glucose Level 95 70-105 MG/DL Calcium Level 9.6 8.5-10.1 MG/DL C-Reactive Protein High Sensitivity 0.02 0.00-0.50 MG/DL Urine Color YELLOW Urine Clarity SLIGHTLY CLOUDY Urine pH 6 5-9 Urine Specific [place] 1.025 H 1.016-1.022 Urine Protein NEGATIVE NEGATIVE Urine Glucose (UA) NEGATIVE NEGATIVE Urine Ketones 1+ H NEGATIVE Urine Nitrite POSITIVE H NEGATIVE Urine Bilirubin NEGATIVE NEGATIVE Urine Urobilinogen NORMAL NORMAL MG/DL Urine Leukocyte Esterase 2+ H NEGATIVE Urine RBC (Auto) 2+ H NEGATIVE Urine RBC 0-2 /HPF Urine WBC 5-10 H /HPF Urine Squamous Epithelial Cells 2-5 /HPF Urine Crystals NONE /LPF Urine Bacteria LARGE H /HPF Urine Casts NONE /LPF Urine Mucus NEGATIVE /LPF Urine Culture Indicated YES Urine Opiates Screen NEGATIVE NEGATIVE Urine Oxycodone Screen NEGATIVE NEGATIVE Urine Methadone Screen NEGATIVE NEGATIVE Urine Propoxyphene Screen NEGATIVE NEGATIVE Urine Barbiturates Screen NEGATIVE NEGATIVE Ur Tricyclic Antidepressants Screen NEGATIVE NEGATIVE Urine Phencyclidine Screen NEGATIVE NEGATIVE Urine Amphetamines Screen NEGATIVE NEGATIVE Urine Methamphetamines Screen NEGATIVE NEGATIVE Urine Benzodiazepines Screen NEGATIVE NEGATIVE Urine Cocaine Screen NEGATIVE NEGATIVE Urine Cannabinoids Screen POSITIVE H NEGATIVE My Orders Orders - DEVANG PEREZ Basic Metabolic Panel (12/04/17 18:47) Cbc No Diff (12/04/17 18:47) Hs C Reactive Protein (12/04/17 18:47) Drug Screen Stat (Urine) (12/04/17 18:47) Ua Culture If Indicated (12/04/17 18:47) Abdomen/Kub 1view (12/04/17 18:47) Post Void Residual Assessment (12/04/17 18:47) Ketorolac Injection (Toradol Injection) (12/04/17 19:00) Ondansetron Oral Dissolve Tab (Zofran (12/04/17 19:00) Lidocaine 2% (Urojet) (Xylocaine Urojet) (12/04/17 20:00) Lactated Ringers (Lr 1000 Ml Iv Solution (12/04/17 20:30) Straight Cath For Spec.-Adult (12/04/17 20:32) Ondansetron Injection (Zofran Injectio (12/04/17 20:45) Urine Culture (12/04/17 20:50) Medications Given in ED Current Medications Medications Dose Ordered Sig/Zee Route Start Time Stop Time Status Last Admin Dose Admin Ketorolac Tromethamine 15 mg ONCE ONCE IM 12/04/17 19:00 12/04/17 19:02 DC 12/04/17 19:30 15 MG Lidocaine HCl 10 ml ONCE ONCE TOP 12/04/17 20:00 12/04/17 20:01 DC 12/04/17 20:00 10 ML Ondansetron HCl 4 mg ONCE ONCE IM 12/04/17 20:45 12/04/17 20:46 DC 12/04/17 20:48 4 MG Ondansetron HCl 4 mg ONCE ONCE PO 12/04/17 19:00 12/04/17 19:02 DC 12/04/17 19:30 4 MG Vital Signs/I&O Vital Sign - Last 12Hours 12/04/17 18:25 Temp 97.9 Pulse 89 Resp 18 B/P (MAP) 123/67 (85) Pulse Ox 99 Blood Pressure Mean: 85 Progress Note #1: Time: 19:01 Progress Note Patient has a history of urinary bladder obstruction secondary to constipation. We'll going to bladder scan her see if there is any residual urine and if she is not able to void we will do a in and out straight catheter to give her some relief. There were some nonnarcotic pain meds and nausea medicines. We'll obtain a CBC to make sure she has not had anemia secondary to her hemorrhoids. CMP will help us evaluate the kidneys. Flat plate x-ray just to look at the colon contents shadow. Progress Note #2: Time: 20:34 Progress Note Bladder scan shows 24 ML's retained urine. We'll do in and out straight catheter to obtain specimen. Diagnostic Imaging Diagonstic Imaging: Xray (1v) Plain Films/CT/US/NM/MRI: abdomen Comments Colon with a moderate to high stool load with no other soft tissue shadow abnormality. No acute osseous abnormalities noted. [facility] [place], [place] NAME: YESENIA RODRIGUEZ [facility] REC#: [id number] PT STATUS: REG ER : 1980 PHYSICIAN: DEVANG PEREZ MD ADMIT DATE: 12/04/17/ER Draft Date of Exam:12/04/17 ABDOMEN/KUB 1VIEW INDICATION: Constipation. Two views were obtained. FINDINGS: There is a moderate amount of retained fecal material likely reflecting some degree of constipation. Bowel gas pattern is otherwise nonspecific. Lung bases are clear. There is no free air. Surgical clips are seen in the right upper quadrant. IMPRESSION: Moderate amount of retained fecal material likely reflects some degree of constipation; otherwise, nonspecific bowel gas pattern. Dictated on workstation # [id number] Dict: 12/04/171917 Trans: 12/04/171922 [id number] Interpreted by: LAUREANO BOYER MD Electronically signed by: Reviewed: Reviewed by Me Consults Consults : Consulting Physician: QASIM LOBO DO Consults Notes Discussed the case of the hemorrhoids with Dr. Lobo, General Surgery and he recommends getting her cool down for about a week with hydrocortisone cream. He recommends 1 capful of MiraLAX 3 times a day for the next 2-3 days so she has a large bowel movement. He would keep her on Colace 200 mg daily. He would also recommend a high-fiber diet as well as sitz baths and other conservative care. He wants to see her in the clinic in about one week. Departure Impression Impression: Primary Impression: Chronic constipation Additional Impressions: External hemorrhoids UTI (urinary tract infection) Qualified Codes: N30.00 - Acute cystitis without hematuria Disposition: HOME, SELF-CARE Condition: Stable Departure-Patient Inst. Decision time for Depature: 21:46 Referrals: NIMA ZACARIAS (PCP/Family) Primary Care Physician Patient Instructions: Hemorrhoids (DC) Add. Discharge Instructions: Tomorrow morning call Dr. Lobo's office [phone] requesting appointment after about one week. You can use sitz baths with Epsom salt to help with the pain as well as the topical lidocaine jelly. Twice a day apply a layer of the hydrocortisone cream to your hemorrhoids until you see the surgeon. Increase your daily fiber intake by either eating more the fiber he serial or using FiberCon capsules several times a day or Metamucil twice a day. Drink plenty of fluids. 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 Then use it once or twice a day for maintenance of your constipation. Continue to take 200 mg, 2 capsules of Colace daily to soften your stools. 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 All discharge instructions reviewed with patient and/or family. Voiced understanding. Scripts Nitrofurantoin Macrocrystal (Nitrofurantoin) 100 Mg Capsule 100 MG PO BID for 7 Days, #14 CAP 0 Refills Prov: DEVANG PEREZ 12/04/17 Ondansetron (Ondansetron Odt) 4 Mg Tab.rapdis 4 MG PO Q6H Y for NAUSEA/VOMITING, #8 TAB 0 Refills Prov: DEVANG PEREZ 12/04/17 Docusate Sodium (Colace) 100 Mg Capsule 100 MG PO BID for 30 Days, #60 CAP 0 Refills Prov: DEVANG PEREZ 12/04/17 Polyethylene Glycol 3350 (Miralax) 17 Gm Powd.pack 17 GM PO TID for 7 Days, #1 EACH Prov: DEVANG PEREZ 12/04/17 Lidocaine (Recticare) 15 Gm Cream..g. 15 GM TP Q6H Y for PAIN-MODERATE, #1 TUBE Prov: DEVANG PEREZ 12/04/17 Hydrocortisone (Ala-Oswaldo) 30 Gm Cream..g. 1 GM TP BID for 14 Days, #1 TUBE 0 Refills Prov: DEVANG PEREZ 12/04/17 Copy Copies To 1: DEVON HERNANDEZ DO Copies To 2: QASIM LOBO DO DEVANG PEREZ Dec 04, 2017 18:58
[2017-12-04] MEDS ORDERED: KETOROLAC 30 MG/ML VIAL IM ONE (19:00)
[2017-12-04] MEDS ORDERED: ONDANSETRON 4 MG (ZOFRAN) ORAL DISSOLVE TAB PO ONE (19:00)
--- NOTE | 2017-12-04 19:24 | Diagnostic Imaging Report ---
INDICATION: Constipation. Two views were obtained. FINDINGS: There is a moderate amount of retained fecal material likely reflecting some degree of constipation. Bowel gas pattern is otherwise nonspecific. Lung bases are clear. There is no free air. Surgical clips are seen in the right upper quadrant. IMPRESSION: Moderate amount of retained fecal material likely reflects some degree of constipation; otherwise, nonspecific bowel gas pattern. Dictated by: Dictated on workstation # [id number]
[2017-12-04 19:59] LABS: HEMOGLOBIN 13.1 G/DL (11.5-16.0); MEAN PLATELET VOLUME 10.2 FL (7.4-10.4); RED BLOOD COUNT 4.2 10^6/uL (4.35-5.85); RED CELL DISTRIBUTION WIDTH 11.7 % (10.0-14.5); WHITE BLOOD COUNT 7.2 10^3/uL (4.3-11.0)
[2017-12-04] MEDS ORDERED: LIDOCAINE UROJET 2% GEL 10 ML PKG TOP ONE (20:00)
[2017-12-04] MEDS ORDERED: LACTATED RINGERS 1,000 ML IV ONE (20:30)
[2017-12-04 20:32] LABS: BUN/CREATININE RATIO 17; CALCIUM 9.6 MG/DL (8.5-10.1); CARBON DIOXIDE 24 MMOL/L (21-32); CHLORIDE 104 MMOL/L (98-107); CREATININE SERUM 0.75 MG/DL (0.60-1.30); GFR ESTIMATED > 60; GLUCOSE 95 MG/DL (70-105); POTASSIUM 3.8 MMOL/L (3.6-5.0); SODIUM 139 MMOL/L (135-145)
[2017-12-04] MEDS ORDERED: ONDANSETRON 4 MG/2 ML (SDV) Z0FRAN IM ONE (20:45)
[2017-12-04 20:59] LABS: BILIRUBIN,URINE NEGATIVE (NEGATIVE); CLARITY,URINE SLIGHTLY CLOUDY; COLOR,URINE YELLOW; GLUCOSE, URINE (UA) NEGATIVE (NEGATIVE); KETONES,URINE 1+ (NEGATIVE); LEUKOCYTE ESTERASE ,URINE 2+ (NEGATIVE); NITRITE,URINE POSITIVE (NEGATIVE); PH,URINE 6 (5-9); PROTEIN,URINE NEGATIVE (NEGATIVE); UROBILINOGEN,URINE NORMAL (NORMAL)
[2017-12-04 21:12] LABS: AMPHETAMINE SCREEN, URINE NEGATIVE (NEGATIVE); BARBITURATE SCREEN URINE NEGATIVE (NEGATIVE); BENZODIAZEPINES SCREEN URINE NEGATIVE (NEGATIVE); CANNABINOID SCREEN, URINE POSITIVE (NEGATIVE); COCAINE SCREEN URINE NEGATIVE (NEGATIVE); METHADONE STAT NEGATIVE (NEGATIVE); METHAMPHETAMINE SCREEN URINE S NEGATIVE (NEGATIVE); OPIATE SCREEN URINE NEGATIVE (NEGATIVE); OXYCODONE STAT NEGATIVE (NEGATIVE); PROPOXYPHENE STAT NEGATIVE (NEGATIVE); TRICYCLIC ANTIDEPRESSANTS SCRE NEGATIVE (NEGATIVE)
[2017-12-04 21:16] LABS: BACTERIA,URINE LARGE /HPF; RBC,URINE 0-2 /HPF
[2017-12-04] MEDS ORDERED: LIDO15CR6 TP (21:57)
[2017-12-04] MEDS ORDERED: POLY17PO6 PO (21:57)
[2017-12-04] MEDS ORDERED: ONDA4TAB11 PO (21:57)
[2017-12-04] MEDS ORDERED: DOCU-143 PO (21:57)
[2017-12-04] MEDS ORDERED: HYDR30CR96 TP (21:57)
[2017-12-04] MEDS ORDERED: NITR100C PO (21:57)
[2017-12-04 22:03] VITALS: BP 123/67
== END 2017-12-04 22:03 | disposition home or self-care (01) ==
LOC: EDUNIT# 18:19 → ER 18:22
DX: K59.09 Other constipation (principal); K64.8 Other hemorrhoids; N39.0 Urinary tract infection, site not specified; F41.9 Anxiety disorder, unspecified; F31.9 Bipolar disorder, unspecified; F12.90 Cannabis use, unspecified, uncomplicated; Z98.890 Other specified postprocedural states; Z87.42 Personal history of other diseases of the female genital tract; Z90.49 Acquired absence of other specified parts of digestive tract; Z98.51 Tubal ligation status; Z88.6 Allergy status to analgesic agent; Z91.040 Latex allergy status
CPT/HCPCS: 36415; 51701; 74018; 80048; 80306; 81000; 85027; 86141; 87088; 87186; 96372

== ENCOUNTER 2017-12-05 15:24 | Emergency (ER) | payer MEDICAID ==
[~2017-12-05 15:24] MED LIST changes: +HYDR30CR96 TP; +LIDO15CR6 TP; +NITR100C PO; +ONDA4TAB11 PO; +POLY17PO6 PO
== END 2017-12-05 15:47 | disposition left against medical advice (07) ==
LOC: EDUNIT# 15:24 → ER 15:25
DX: R50.9 Fever, unspecified (principal); R11.10 Vomiting, unspecified; R20.0 Anesthesia of skin; M79.89 Other specified soft tissue disorders

== ENCOUNTER 2017-12-27 20:12 | Emergency (ER) | payer MEDICAID ==
[~2017-12-27] VITALS: Ht 175.3 cm; Wt 68.0 kg
--- OUTSIDE RECORDS SUMMARY | 2017-12-27 20:18 | XMS REPORT | Clinical Summary ---
Author Author [facility] Organization [facility] Address Unknown Phone Unavailable Care Team Providers Care Crew Chief Name Role Phone PP Unavailable Allergies Active [...]
--- OUTSIDE RECORDS SUMMARY | 2017-12-27 20:24 | XMS REPORT | Continuity of Care Document ---
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 13:33:00 07/28/2014 23:59:59 CLS Outpatient RIDINGSLALITHA APRN [facility] [address] QUICK [id number] 11/11/2014 02:23:00 Document Registration [id number] 11/09/2014 11:40:00 Document Registration
[2017-12-27 21:35] LABS: BILIRUBIN,URINE NEGATIVE (NEGATIVE); CLARITY,URINE CLEAR; COLOR,URINE YELLOW; GLUCOSE, URINE (UA) NEGATIVE (NEGATIVE); KETONES,URINE NEGATIVE (NEGATIVE); LEUKOCYTE ESTERASE ,URINE NEGATIVE (NEGATIVE); NITRITE,URINE NEGATIVE (NEGATIVE); PH,URINE 7 (5-9); PROTEIN,URINE NEGATIVE (NEGATIVE); UROBILINOGEN,URINE NORMAL (NORMAL)
[2017-12-27] MEDS ORDERED: LACTATED RINGERS 1,000 ML IV ONE (21:38)
[2017-12-27 21:55] LABS: BACTERIA,URINE FEW /HPF; RBC,URINE RARE /HPF
[2017-12-27] MEDS ORDERED: KETOROLAC 30 MG/ML VIAL IVP ONE (22:00)
[2017-12-27] MEDS ORDERED: ONDANSETRON 4 MG/2 ML (SDV) Z0FRAN IVP ONE (22:00)
[2017-12-27 22:10] LABS: AMPHETAMINE SCREEN, URINE NEGATIVE (NEGATIVE); BARBITURATE SCREEN URINE NEGATIVE (NEGATIVE); BENZODIAZEPINES SCREEN URINE NEGATIVE (NEGATIVE); CANNABINOID SCREEN, URINE NEGATIVE (NEGATIVE); COCAINE SCREEN URINE NEGATIVE (NEGATIVE); METHADONE STAT NEGATIVE (NEGATIVE); METHAMPHETAMINE SCREEN URINE S NEGATIVE (NEGATIVE); OPIATE SCREEN URINE NEGATIVE (NEGATIVE); OXYCODONE STAT NEGATIVE (NEGATIVE); PROPOXYPHENE STAT NEGATIVE (NEGATIVE); TRICYCLIC ANTIDEPRESSANTS SCRE NEGATIVE (NEGATIVE)
[2017-12-27 22:11] LABS: BASOPHILS % (AUTO) 0 % (0-10); EOSINOPHILS # (AUTO) 0.1 10^3/uL (0.0-0.3); EOSINOPHILS % (AUTO) 1 % (0-10); HEMATOCRIT 34 % (35-52); HEMOGLOBIN 12.3 G/DL (11.5-16.0); LYMPHOCYTES # (AUTO) 2.4 X 10^3 (1.0-4.0); LYMPHOCYTES % (AUTO) 40 % (12-44); MEAN CORPUSCULAR HEMOGLOBIN 31 PG (25-34); MEAN CORPUSCULAR HGB CONC 36 G/DL (32-36); MEAN CORPUSCULAR VOLUME 85 FL (80-99); MEAN PLATELET VOLUME 9.1 FL (7.4-10.4); MONOCYTES # (AUTO) 0.5 X 10^3 (0.0-1.0); MONOCYTES % (AUTO) 8 % (0-12); NEUTROPHILS % (AUTO) 50 % (42-75); PLATELET COUNT 210 10^3/uL (130-400); RED BLOOD COUNT 4.01 10^6/uL (4.35-5.85); RED CELL DISTRIBUTION WIDTH 12.1 % (10.0-14.5)
[2017-12-27 22:29] LABS: ALANINE AMINOTRANSFERASE 13 U/L (0-55); ALBUMIN 4.4 GM/DL (3.2-4.5); ALKALINE PHOSPHATASE 59 U/L (40-136); BILIRUBIN,TOTAL 0.3 MG/DL (0.1-1.0); BUN/CREATININE RATIO 21; CALCIUM 9.3 MG/DL (8.5-10.1); CARBON DIOXIDE 25 MMOL/L (21-32); CHLORIDE 107 MMOL/L (98-107); CREATINE KINASE 71 U/L (29-168); CREATININE SERUM 0.73 MG/DL (0.60-1.30); GFR ESTIMATED > 60; GLUCOSE 104 MG/DL (70-105); MAGNESIUM 2.3 MG/DL (1.8-2.4); POTASSIUM 3.9 MMOL/L (3.6-5.0); SODIUM 140 MMOL/L (135-145); TOTAL PROTEIN 7.1 GM/DL (6.4-8.2)
[2017-12-27] MEDS ORDERED: diphenhydrAMINE 50 MG/ML INJ (BENADRYL) IVP ONE (22:30)
[2017-12-27] MEDS ORDERED: ORPHENADRINE 60 MG/2 ML (NORFLEX) AMP IV ONE (22:30)
[2017-12-27 22:48] LABS: CREATINE KINASE MB 0.5 NG/ML (<6.6); TSH (THYROID ANALYZER) 1.47 UIU/ML (0.35-4.94)
[2017-12-27] MEDS ORDERED: NS 250 ML (IVPB) BAG IV ONE (23:45)
[2017-12-27] MEDS ORDERED: IOHEXOL 350 MG/ML 100 ML (OMNIPAQUE 350) VIAL IV ONE (23:45)
--- NOTE | 2017-12-28 00:45 | ED General ---
General Chief Complaint: General Problems/Pain Stated Complaint: UTI, TOOTH PAIN, BODY STIFFNESS Nursing Triage Note: PT TO ED 10 W/ C/O DENTAL PAIN, GENERALIZED STIFFNESS ONSET YESTERDAY AFTER "MOVING WRONG" ET OVARIAN CYST PAIN, CHRONIC, WORSE TODAY. PT REPORTS SHE HAS SEEN HER PCP FOR C/O OVARIAN CYST PAIN BUT WAS TOLD "THERE'S NOTHING THEY CAN DO" Nursing Sepsis Screen: No Definite Risk Allergies and Home Medications Allergies Coded Allergies: codeine (Unverified Allergy, Severe, SWELLING OF THE THROAT, 09/07/17) PT DENIES BEING ALLERGIC TO TYLENOL #3, 12/04/15. latex (Unverified Allergy, Unknown, 09/05/14) Home Medications Docusate Sodium 100 Mg Capsule, 100 MG PO BID Prescribed by: DEVANG PEREZ on 12/04/172156 Hydrocortisone 30 Gm Cream..g., 1 GM TP BID Prescribed by: DEVANG PEREZ on 12/04/172156 Hydroxyzine Pamoate 50 Mg Capsule, 50 MG PO TID PRN for ANXIETY, (Reported) LAST FILLED #90 2-5-16 Lidocaine 15 Gm Cream..g., 15 GM TP Q6H PRN for PAIN-MODERATE Prescribed by: DEVANG PEREZ on 12/04/172156 Nitrofurantoin Macrocrystal 100 Mg Capsule, 100 MG PO BID Prescribed by: DEVANG PEREZ on 12/04/172156 Ondansetron 4 Mg Tab.rapdis, 4 MG PO Q6H PRN for NAUSEA/VOMITING Prescribed by: DEVANG PEREZ on 12/04/172156 Polyethylene Glycol 3350 17 Gm Powd.pack, 17 GM PO TID Prescribed by: DEVANG PEREZ on 12/04/172156 Quetiapine Fumarate 150 Mg Tab.er.24h, 150 MG PO HS, (Reported) LAST FILLED #30 2-5-16 Past Mqghbhl-Cgvfhk-Uitisl Hx Patient Social History Alcohol Use: Denies Use Recreational Drug Use: Yes Drug of Choice: cannibus Smoking Status: Never a Smoker 2nd Hand Smoke Exposure: No Recent Foreign Travel: No Contact w/Someone Who Travel: No Recent Infectious Disease Expo: No Recent Hopitalizations: No Physical Abuse: No Sexual Abuse: No Mistreated: No Fear: No Immunizations Up To Date Tetanus Booster (TDap): Unknown PED Vaccines UTD: Yes Date of Influenza Vaccine: Jun 10, 2015 Seasonal Allergies Seasonal Allergies: No Past Medical History Surgeries: Yes (TENDON RELEASE/R THUMB, ORAL, RT ELBOW) Abdominal, Appendectomy, Section, Gallbladder, Orthopedic, Tubal Ligation Respiratory: No Currently Using CPAP: No Currently Using BIPAP: No Cardiac: No Neurological: No Reproductive Disorders: Yes (left ovarian mass) Female 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 ) Psychosocial: Yes Anxiety, Bipolar Nursing Suicide Risk Score: 0 Integumentary: No Blood Disorders: No Adverse Reaction/Blood Tranf: No Family Medical History Chronic constipation 19 MOTHER FH: colonic polyps 19 MOTHER Hypertension 19 FATHER 19 MOTHER Kidney stone 19 FATHER 19 MOTHER No Pertinent Family Hx Physical Exam Vital Signs Vital Signs - First Documented 12/27/17 20:27 Temp 97.5 Pulse 89 Resp 24 B/P (MAP) 189/115 (139) Pulse Ox 99 O2 Delivery Room Air Capillary Refill : Less Than 3 Seconds Progress/Results/Core Measures Suspected Sepsis Recent Fever Within 48 Hours: No Infection Criteria Present: None New/Unexplained Altered Menta: No Sepsis Screen: No Definite Risk SIRS Temperature:97.5 Pulse: 89 Respiratory Rate: 24 Laboratory Tests 12/27/17 21:57: White Blood Count 6.0 Blood Pressure 189 /115 Mean: 139 Laboratory Tests 12/27/17 21:57: Creatinine 0.73, Platelet Count 210, Total Bilirubin 0.3 Results/Orders Lab Results Laboratory Tests Test 12/27/17 21:27 12/27/17 21:57 Range/Units Urine Color YELLOW Urine Clarity CLEAR Urine pH 7 5-9 Urine Specific [place] 1.015 L 1.016-1.022 Urine Protein NEGATIVE NEGATIVE Urine Glucose (UA) NEGATIVE NEGATIVE Urine Ketones NEGATIVE NEGATIVE Urine Nitrite NEGATIVE NEGATIVE Urine Bilirubin NEGATIVE NEGATIVE Urine Urobilinogen NORMAL NORMAL MG/DL Urine Leukocyte Esterase NEGATIVE NEGATIVE Urine RBC (Auto) 1+ H NEGATIVE Urine RBC RARE /HPF Urine WBC 2-5 /HPF Urine Squamous Epithelial Cells 2-5 /HPF Urine Crystals NONE /LPF Urine Bacteria FEW H /HPF Urine Casts NONE /LPF Urine Mucus SMALL H /LPF Urine Culture Indicated NO Urine Opiates Screen NEGATIVE NEGATIVE Urine Oxycodone Screen NEGATIVE NEGATIVE Urine Methadone Screen NEGATIVE NEGATIVE Urine Propoxyphene Screen NEGATIVE NEGATIVE Urine Barbiturates Screen NEGATIVE NEGATIVE Ur Tricyclic Antidepressants Screen NEGATIVE NEGATIVE Urine Phencyclidine Screen NEGATIVE NEGATIVE Urine Amphetamines Screen NEGATIVE NEGATIVE Urine Methamphetamines Screen NEGATIVE NEGATIVE Urine Benzodiazepines Screen NEGATIVE NEGATIVE Urine Cocaine Screen NEGATIVE NEGATIVE Urine Cannabinoids Screen NEGATIVE NEGATIVE White Blood Count 6.0 4.3-11.0 10^3/uL Red Blood Count 4.01 L 4.35-5.85 10^6/uL Hemoglobin 12.3 11.5-16.0 G/DL Hematocrit 34 L 35-52 % Mean Corpuscular Volume 85 80-99 FL Mean Corpuscular Hemoglobin 31 25-34 PG Mean Corpuscular Hemoglobin Concent 36 32-36 G/DL Red Cell Distribution Width 12.1 10.0-14.5 % Platelet Count 210 130-400 10^3/uL Mean Platelet Volume 9.1 7.4-10.4 FL Neutrophils (%) (Auto) 50 42-75 % Lymphocytes (%) (Auto) 40 12-44 % Monocytes (%) (Auto) 8 0-12 % Eosinophils (%) (Auto) 1 0-10 % Basophils (%) (Auto) 0 0-10 % Neutrophils # (Auto) 3.0 1.8-7.8 X 10^3 Lymphocytes # (Auto) 2.4 1.0-4.0 X 10^3 Monocytes # (Auto) 0.5 0.0-1.0 X 10^3 Eosinophils # (Auto) 0.1 0.0-0.3 10^3/uL Basophils # (Auto) 0.0 0.0-0.1 10^3/uL Sodium Level 140 135-145 MMOL/L Potassium Level 3.9 3.6-5.0 MMOL/L Chloride Level 107 98-107 MMOL/L Carbon Dioxide Level 25 21-32 MMOL/L Anion Gap 8 5-14 MMOL/L Blood Urea Nitrogen 15 7-18 MG/DL Creatinine 0.73 0.60-1.30 MG/DL Estimat Glomerular Filtration Rate > 60 BUN/Creatinine Ratio 21 Glucose Level 104 70-105 MG/DL Calcium Level 9.3 8.5-10.1 MG/DL Magnesium Level 2.3 1.8-2.4 MG/DL Total Bilirubin 0.3 0.1-1.0 MG/DL Aspartate Amino Transf (AST/SGOT) 16 5-34 U/L Alanine Aminotransferase (ALT/SGPT) 13 0-55 U/L Alkaline Phosphatase 59 40-136 U/L Total Creatine Kinase 71 29-168 U/L Creatine Kinase MB 0.5 <6.6 NG/ML Total Protein 7.1 6.4-8.2 GM/DL Albumin 4.4 3.2-4.5 GM/DL TSH [place] Testing 1.47 0.35-4.94 UIU/ML Serum Alcohol < 10 <10 MG/DL My Orders Orders - NAZ MARTINEZ DO Urine Bedside (12/27/17 21:11) Drug Screen Stat (Urine) (12/27/17 21:11) Ua Culture If Indicated (12/27/17 21:11) Saline Lock/Iv-Start (12/27/17 21:38) Alcohol (12/27/17 21:38) Cbc With Automated Diff (12/27/17 21:38) Comprehensive Metabolic Panel (12/27/17 21:38) Creatine Kinase (12/27/17 21:38) Creatine Kinase Mb (12/27/17 21:38) Magnesium (12/27/17 21:38) Thyroid Analyzer (12/27/17 21:38) Saline Lock/Iv-Start (12/27/17 21:38) Lactated Ringers (Lr 1000 Ml Iv Solution (12/27/17 21:38) Ondansetron Injection (Zofran Injectio (12/27/17 22:00) Ketorolac Injection (Toradol Injection) (12/27/17 22:00) Orphenadrine Injection (Norflex Injectio (12/27/17 22:30) Diphenhydramine Injection (Benadryl Inje (12/27/17 22:30) Ct Abdomen/Pelvis W (12/27/17 23:31) Ct Head/Face/Cervical Wo (12/27/17 23:33) Iohexol Injection (Omnipaque 350 Mg/Ml 1 (12/27/17 23:45) Di Iv Start (Assessment) (12/27/17 23:38) Ns (Ivpb) (Sodium Chloride 0.9%) (12/27/17 23:45) Medications Given in ED Current Medications Medications Dose Ordered Sig/Zee Route Start Time Stop Time Status Last Admin Dose Admin Diphenhydramine HCl 50 mg ONCE ONCE IVP 12/27/17 22:30 12/27/17 22:31 DC 12/27/17 22:35 50 MG Ketorolac Tromethamine 30 mg ONCE ONCE IVP 12/27/17 22:00 12/27/17 22:01 DC 12/27/17 22:02 30 MG Lactated Ringer's 1,000 ml @ 0 mls/hr Q0M ONCE IV 12/27/17 21:38 12/27/17 21:41 DC 12/27/17 22:02 1,000 MLS/HR Ondansetron HCl 4 mg ONCE ONCE IVP 12/27/17 22:00 12/27/17 22:01 DC 12/27/17 22:02 4 MG Orphenadrine Citrate 60 mg ONCE ONCE IV 12/27/17 22:30 12/27/17 22:31 DC 12/27/17 22:35 60 MG Vital Signs/I&O 12/27/17 20:27 Temp 97.5 Pulse 89 Resp 24 B/P (MAP) 189/115 (139) Pulse Ox 99 O2 Delivery Room Air Capillary Refill : Less Than 3 Seconds Blood Pressure Mean: 139 Point of Care Testing Urine -Bedside: Negative Departure Impression Primary Impression: GENERALIZED PAIN Additional Impressions: Constipation Medication withdrawal Disposition: 01 HOME, SELF-CARE Condition: Stable Departure-Patient Inst. Referrals: [facility] (PCP) Primary Care Physician NIMA ZACARIAS (Family) Primary Care Physician Patient Instructions: CHRONIC PAIN, Constipation, Adult (DC), Drug Withdrawal ( DC), High Fiber Diet, MANAGING YOUR CHRONIC PAIN Add. Discharge Instructions: TAKE YOUR MEDICATIONS PRESCRIBED LOTS OF CLEAR LIQUIDS--WATER, BROTH, JELLO, GATORADE TYLENOL 1 GRAM / MOTRIN 800 MG 4 TIMES A DAY FOR PAIN FOLLOW UP WITH YOUR DR IN 2-3 DAYS IF NO BETTER All discharge instructions reviewed with patient and/or family. Voiced understanding. NAZ MARTINEZ DO Dec 28, 2017 00:45
[2017-12-28 00:53] VITALS: BP 133/95
--- NOTE | 2017-12-28 06:55 | Diagnostic Imaging Report ---
PROCEDURE: CT head, face, and cervical spine without contrast. TECHNIQUE: Multiple contiguous axial images were obtained through the head, neck, and facial bones without the use of intravenous contrast. Sagittal and coronal reformations through the cervical spine and facial bones were also performed. INDICATION: Head and neck pain. Dental pain. COMPARISON: CT head of 01/24/16. FINDINGS: CT head: No hyperdense hemorrhage or space-occupying mass. No hydrocephalus or midline shift. Fine-white matter differentiation is well preserved. Basilar cisterns are normal. No acute skull fracture. Paranasal sinuses and mastoid air cells are clear. Orbits are unremarkable. CT face: There is no acute fracture in the mid face or mandible. Temporomandibular joints are normal in alignment. Multifocal dental amalgam is noted. No periapical lucencies of the residual teeth to indicate periodontal disease. No appreciable dental caries. Paranasal sinuses and mastoid air cells are clear. CT cervical spine: No acute fracture or traumatic malalignment. No spinal stenosis. Lung apices are clear. No cervical lymphadenopathy. Airway is patent. IMPRESSION: 1. Normal head CT. 2. No evidence of periodontal disease. No mid face fracture. 3. No fracture or traumatic malalignment in the cervical spine. 4. Findings are in agreement with the preliminary report. Dictated by: Dictated on workstation # [id number]
--- NOTE | 2017-12-28 08:07 | Diagnostic Imaging Report ---
PROCEDURE: CT abdomen and pelvis with contrast. TECHNIQUE: Multiple contiguous axial images were obtained through the abdomen and pelvis after administration of intravenous contrast. INDICATION: Right lower quadrant pain. CORRELATION STUDY: 12/04/2015. FINDINGS: LOWER THORAX: Clear. LIVER: Unremarkable. GALLBLADDER: Cholecystectomy. No bile duct dilatation. SPLEEN: Unremarkable. PANCREAS: Unremarkable. ADRENAL GLANDS: Unremarkable. KIDNEYS: Normal configuration. No calcification or obstruction. ABDOMINAL AORTA: Unremarkable, nonaneurysmal. GASTROINTESTINAL TRACT: Rather significant fecal retention throughout the colon. Rectal vault is distended. No definitive areas of mucosal thickening. Small bowel with a few fluid filled loops of bowel present. The appendix cannot be discretely localized. No free air. No significant ascites. URINARY BLADDER: Unremarkable. REPRODUCTIVE: Uterus unremarkable. A previously demonstrated left ovarian cyst has resolved. OSSEOUS STRUCTURES: No acute abnormality. IMPRESSION: 1. Rather marked severity of constipation. Rectal vault distention with underlying fecal impaction not excluded. A preliminary report was provided by [employer]. Dictated by: Dictated on workstation # [id number]
== END 2017-12-28 00:53 | disposition home or self-care (01) ==
LOC: EDUNIT# 20:12 → ER 20:13
DX: K59.00 Constipation, unspecified (principal); F19.239 Other psychoactive substance dependence with withdrawal, unspecified; F41.9 Anxiety disorder, unspecified; F32.9 Major depressive disorder, single episode, unspecified; F12.10 Cannabis abuse, uncomplicated; Z88.5 Allergy status to narcotic agent; Z91.040 Latex allergy status; Z86.010 Personal history of colon polyps; Z90.49 Acquired absence of other specified parts of digestive tract; Z87.59 Personal history of other complications of pregnancy, childbirth and the puerperium; Z98.51 Tubal ligation status; Z87.448 Personal history of other diseases of urinary system; Z87.440 Personal history of urinary (tract) infections; Z79.52 Long term (current) use of systemic steroids
CPT/HCPCS: 36415; 70450; 70486; 72125; 74177; 80053; 80306; 80320; 81000; 82550; 82553; 83735; 84443; 84703; 85025; 96361; 96374; 96375

== ENCOUNTER 2021-11-07 17:53 | Emergency (ER) | payer MEDICAID, OTHER ==
[~2021-11-07] VITALS: Ht 175 cm; Wt 66.6 kg
[~2021-11-07 17:53] MED LIST changes: +CYCL10TA25 PO; -CYCL10TA9 PO; -LAMO100T PO; +LAMO100T5 PO; -LEVO500T80 PO; +LEVO500T81 PO; -METO-370 PO; +METO50TA7 PO; -SULF1TAB35 PO; +SULF1TAB38 PO
[2021-11-07] MEDS ORDERED: LACTATED RINGERS 1,000 ML IV SCH (18:15)
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
[2021-11-07] MEDS ORDERED: KETOROLAC 30 MG/ML VIAL IVP ONE (18:30)
[2021-11-07] MEDS ORDERED: ONDANSETRON 4 MG/2 ML (SDV) Z0FRAN IVP ONE (18:30)
[2021-11-07 18:31] LABS: ALBUMIN 4.9 GM/DL (3.2-4.5); CHLORIDE 106 MMOL/L (98-107); POTASSIUM 3.9 MMOL/L (3.6-5.0); SODIUM 140 MMOL/L (135-145)
[2021-11-07 18:32] LABS: CALCIUM 10.1 MG/DL (8.5-10.1)
[2021-11-07 18:33] LABS: GLUCOSE 95 MG/DL (70-105); TOTAL PROTEIN 8.5 GM/DL (6.4-8.2)
[2021-11-07 18:34] LABS: CARBON DIOXIDE 22 MMOL/L (21-32)
[2021-11-07 18:35] LABS: BILIRUBIN,TOTAL 0.3 MG/DL (0.1-1.0)
[2021-11-07 18:36] LABS: BASOPHILS % (AUTO) 0 % (0-10); EOSINOPHILS # (AUTO) 0.2 10^3/uL (0.0-0.3); EOSINOPHILS % (AUTO) 2 % (0-10); HEMATOCRIT 40 % (35-52); HEMOGLOBIN 13.9 g/dL (11.5-16.0); LYMPHOCYTES # (AUTO) 3.5 10^3/uL (1.0-4.0); LYMPHOCYTES % (AUTO) 40 % (12-44); MEAN CORPUSCULAR HEMOGLOBIN 31 pg (25-34); MEAN CORPUSCULAR HGB CONC 35 g/dL (32-36); MEAN CORPUSCULAR VOLUME 87 fL (80-99); MEAN PLATELET VOLUME 9.5 fL (9.0-12.2); MONOCYTES # (AUTO) 0.6 10^3/uL (0.0-1.0); MONOCYTES % (AUTO) 7 % (0-12); NEUTROPHILS # (AUTO) 4.4 10^3/uL (1.8-7.8); NEUTROPHILS % (AUTO) 51 % (42-75); PLATELET COUNT 287 10^3/uL (130-400); WHITE BLOOD COUNT 8.7 10^3/uL (4.3-11.0)
[2021-11-07 18:37] LABS: ALKALINE PHOSPHATASE 73 U/L (40-136); CREATININE SERUM 0.78 MG/DL (0.60-1.30); GFR ESTIMATED 99
[2021-11-07 18:38] LABS: BUN/CREATININE RATIO 18
[2021-11-07 18:40] LABS: ALANINE AMINOTRANSFERASE 10 U/L (0-55)
[2021-11-07] MEDS ORDERED: NAPR-1071 PO (18:55)
[2021-11-07] MEDS ORDERED: METH-732 PO (18:55)
[2021-11-07] MEDS ORDERED: ONDA8TAB13 PO (18:55)
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
[2021-11-07] MEDS ORDERED: PROCHLORPERAZINE 10 MG/2ML INJ (COMPAZINE) IV ONE (19:15)
[2021-11-07] MEDS ORDERED: diphenhydrAMINE 50 MG/ML INJ (BENADRYL) IVP ONE (19:15)
[2021-11-07] MEDS ORDERED: ACETAMINOPHEN 500 MG TAB (TYLENOL) ONE (19:57)
[2021-11-07] MEDS ORDERED: ACETAMINOPHEN 500 MG TAB (TYLENOL) PO ONE (20:00)
[2021-11-07] MEDS ORDERED: CYCLOBENZAPRINE 10 MG (FLEXERIL) TAB ONE (20:04)
[2021-11-07 20:09] VITALS: BP 135/93
[2021-11-07] MEDS ORDERED: CYCLOBENZAPRINE 10 MG (FLEXERIL) TAB PO SCH (20:15)
== END 2021-11-07 20:09 | disposition home or self-care (01) ==
LOC: EDUNIT# 17:53 → ER 18:01
DX: R51.9 Headache, unspecified (principal); M54.2 Cervicalgia; R55 Syncope and collapse; Z91.040 Latex allergy status
CPT/HCPCS: 36415; 70450; 72125; 80053; 84703; 85025; 93005; 96374; 96375

== ENCOUNTER 2022-07-25 16:55 | Emergency (ER) | payer MEDICAID ==
[~2022-07-25] VITALS: Ht 175.3 cm; Wt 66.7 kg
[~2022-07-25 16:55] MED LIST changes: +LEVO-55 PO; -LEVO500T81 PO; +METH-732 PO; +ONDA8TAB13 PO
[2022-07-25 17:30] LABS: BILIRUBIN,URINE NEGATIVE (NEGATIVE); CLARITY,URINE CLEAR; COLOR,URINE YELLOW; GLUCOSE, URINE (UA) NEGATIVE (NEGATIVE); KETONES,URINE NEGATIVE (NEGATIVE); LEUKOCYTE ESTERASE ,URINE 1+ (NEGATIVE); NITRITE,URINE NEGATIVE (NEGATIVE); PH,URINE 5.5 (5-9); PROTEIN,URINE NEGATIVE (NEGATIVE)
[2022-07-25] MEDS ORDERED: KETOROLAC 30 MG/ML VIAL IVP ONE (17:30)
[2022-07-25] MEDS ORDERED: ONDANSETRON 4 MG/2 ML (SDV) Z0FRAN IVP ONE (17:30)
[2022-07-25 17:43] LABS: BACTERIA,URINE TRACE /HPF
[2022-07-25 17:44] LABS: EOSINOPHILS # (AUTO) 0.1 10^3/uL (0.0-0.3); EOSINOPHILS % (AUTO) 0 % (0-10); MEAN PLATELET VOLUME 10.6 fL (9.0-12.2)
[2022-07-25 17:45] LABS: BASOPHILS # (AUTO) 0.1 10^3/uL (0.0-0.1); BASOPHILS % (AUTO) 0 % (0-10); HEMATOCRIT 39 % (35-52); HEMOGLOBIN 13.8 g/dL (11.5-16.0); LYMPHOCYTES # (AUTO) 2.7 10^3/uL (1.0-4.0); LYMPHOCYTES % (AUTO) 21 % (12-44); MEAN CORPUSCULAR HEMOGLOBIN 31 pg (25-34); MEAN CORPUSCULAR HGB CONC 35 g/dL (32-36); MEAN CORPUSCULAR VOLUME 87 fL (80-99); MONOCYTES # (AUTO) 0.8 10^3/uL (0.0-1.0); MONOCYTES % (AUTO) 6 % (0-12); NEUTROPHILS # (AUTO) 9.2 10^3/uL (1.8-7.8); NEUTROPHILS % (AUTO) 72 % (42-75); PLATELET COUNT 187 10^3/uL (130-400); WHITE BLOOD COUNT 12.9 10^3/uL (4.3-11.0)
[2022-07-25 17:58] LABS: ALBUMIN 4.9 GM/DL (3.2-4.5); CHLORIDE 105 MMOL/L (98-107); POTASSIUM 4.3 MMOL/L (3.6-5.0); SODIUM 137 MMOL/L (135-145)
[2022-07-25 17:59] LABS: CALCIUM 10.4 MG/DL (8.5-10.1)
[2022-07-25 18:00] LABS: GLUCOSE 101 MG/DL (70-105); TOTAL PROTEIN 8.8 GM/DL (6.4-8.2)
[2022-07-25] MEDS ORDERED: NS 100 ML (IVPB) BAG IV ONE (18:00)
[2022-07-25] MEDS ORDERED: IOHEXOL 350 MG/ML 100 ML (OMNIPAQUE 350) VIAL IV ONE (18:00)
[2022-07-25 18:01] LABS: CARBON DIOXIDE 17 MMOL/L (21-32)
[2022-07-25 18:02] LABS: BILIRUBIN,TOTAL 0.5 MG/DL (0.1-1.0)
[2022-07-25 18:04] LABS: ALKALINE PHOSPHATASE 65 U/L (40-136); CREATININE SERUM 0.86 MG/DL (0.60-1.30); GFR ESTIMATED 88
[2022-07-25 18:05] LABS: BUN/CREATININE RATIO 19
[2022-07-25 18:07] LABS: ALANINE AMINOTRANSFERASE 16 U/L (0-55); LIPASE 16 U/L (8-78)
[2022-07-25] MEDS ORDERED: NS IV 1000 ML 1,000 ML IV SCH (18:15)
--- NOTE | 2022-07-25 18:17 | Diagnostic Imaging Report ---
PROCEDURE: CT abdomen and pelvis with contrast. TECHNIQUE: Multiple contiguous axial images were obtained through the abdomen and pelvis after administration of intravenous contrast. Auto Exposure Controls were utilized during the CT exam to meet ALARA standards for radiation dose reduction. All CT scans use one or more of the following dose optimizing techniques: automated exposure control, MA and/or KvP adjustment based on patient size and exam type or iterative reconstruction. INDICATION: Abdominal pain with nausea and vomiting. COMPARISON: Correlation is made with prior CT from 12/27/2017. FINDINGS: Lung bases are clear. No focal liver mass is detected. Gallbladder is surgically absent. There is no biliary ductal dilatation. Pancreas and spleen are unremarkable. No adrenal mass is detected. No renal mass or hydronephrosis is seen. Aorta is nonaneurysmal. There is a large stool volume throughout the colon and rectum, consistent with constipation. Small bowel is normal in caliber. No obstruction is seen. There is no free fluid or fluid collection. There is no free air. Bladder and uterus are unremarkable. IMPRESSION: Moderate stool load, consistent with constipation. No other significant abnormality is detected. Dictated by: Dictated on workstation # [id number]
--- NOTE | 2022-07-25 18:57 | ED Abdominal Pain ---
General Chief Complaint: Abdominal/GI Problems Stated Complaint: ABD PAIN,HIGH BP,CHEST PAIN Nursing Triage Note: PT AMB TO [facility] 7 WITH COMPLAINT OF LOW ABD PAIN. STATES STARTED YESTERDAY AND WORSENED TODAY. STATES SHE HAD A BLADDER INFECTION ABOUT A MONTH AGO. Source of Information: Patient Exam Limitations: No Limitations History of Present Illness Date Seen by Provider: Jul 25, 2022 Time Seen by Provider: 17:00 Initial Comments Patient is a 41-year-old female who presents to the emergency department approximately 3 days of generalized abdominal pain as well as intermittent lower abdominal cramping. Patient states she has also had some nausea/vomiting. She states she has been somewhat constipated recently and states she has irregular bowel movements at baseline. She has had a decreased appetite. Denies any re cent abdominal trauma. States she has had some urinary frequency but denies any dysuria. Allergies and Home Medications Allergies Coded Allergies: codeine (Unverified Allergy, Severe, SWELLING OF THE THROAT, 09/07/17) PT DENIES BEING ALLERGIC TO TYLENOL #3, 12/04/15. acetaminophen (Verified Allergy, Unknown, 07/25/22) lamotrigine (Verified Allergy, Unknown, 11/07/21) latex (Unverified Allergy, Unknown, 09/05/14) metoprolol (Verified Allergy, Unknown, 11/07/21) morphine (Verified Allergy, Unknown, 11/07/21) Patient Home Medication List Home Medication List Reviewed: Yes Docusate Sodium (Colace) 100 Mg Capsule, 100 MG PO BID Prescribed by: DEVANG PEREZ on 12/04/172156 Hydrocortisone (Ala-Sowaldo) 30 Gm Cream..g., 1 GM TP BID Prescribed by: DEVANG PEREZ on 12/04/172156 Hydroxyzine Pamoate (Hydroxyzine Pamoate) 50 Mg Capsule, 50 MG PO TID PRN for ANXIETY, (Reported) Entered as Reported by: JARETH CONWAY on 12/06/15 0942 Lidocaine (Recticare) 15 Gm Cream..g., 15 GM TP Q6H PRN for PAIN-MODERATE Prescribed by: DEVANG PEREZ on 12/04/172156 Methocarbamol (Methocarbamol) 750 Mg Tablet, 750 MG PO Q6-8HR Prescribed by: SWETHA ROBERTS on 11/07/21 185 Metoprolol Tartrate (Metoprolol Tartrate) 25 Mg Tablet, (Reported) Entered as Reported by: CLEO NEWMAN on 09/07/17 1725 Naproxen (Naprosyn) 500 Mg Tablet, 500 MG PO BID PRN for PAIN-MODERATE (5-7) Prescribed by: SWETHA ROBERTS on 11/07/211854 Nitrofurantoin Macrocrystal (Nitrofurantoin) 100 Mg Capsule, 100 MG PO BID Prescribed by: DEVANG PEREZ on 12/04/172156 Ondansetron (Ondansetron Odt) 4 Mg Tab.rapdis, 4 MG PO Q6H PRN for NAUSEA/VOMITING Prescribed by: DEVANG PEREZ on 12/04/172156 Ondansetron (Ondansetron Odt) 8 Mg Tab.rapdis, 8 MG PO Q6H PRN for NAUSEA/ VOMITING Prescribed by: SWETHA ROBERTS on 11/07/211854 Polyethylene Glycol 3350 (Miralax) 17 Gm Powd.pack, 17 GM PO TID Prescribed by: DEVANG PEREZ on 12/04/172156 Quetiapine Fumarate (Seroquel Xr) 150 Mg Tab.er.24h, 150 MG PO HS, (Reported) Entered as Reported by: TETO SANCHEZ on 12/04/152028 Review of Systems Review of Systems Constitutional: no symptoms reported EENTM: No Symptoms Reported Respiratory: No Symptoms Reported Cardiovascular: No Symptoms Reported Gastrointestinal: See HPI, Abdominal Pain Genitourinary: See HPI Musculoskeletal: no symptoms reported Skin: no symptoms reported Psychiatric/Neurological: No Symptoms Reported Endocrine: No Symptoms Reported Past Kysqyyw-Lsdrpr-Ifbycy Hx Patient Social History Tobacco Use?: No Use of E-Cig and/or Vaping dev: No Substance use?: No Alcohol Use?: No Pt feels they are or have been: No Immunizations Up To Date Tetanus Booster (TDap): Unknown PED Vaccines UTD: Yes Seasonal Allergies Seasonal Allergies: No Past Medical History Surgeries: Yes (TENDON RELEASE/R THUMB, ORAL, RT ELBOW) Abdominal, Appendectomy, Section, Gallbladder, Orthopedic, Tubal Ligation Respiratory: No Currently Using CPAP: No Currently Using BIPAP: No Cardiac: No Neurological: No Reproductive Disorders: Yes (left ovarian mass) Female 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 ) Psychosocial: Yes Anxiety, Bipolar Integumentary: No Blood Disorders: No Adverse Reaction/Blood Tranf: No Family Medical History Chronic constipation 19 MOTHER FH: colonic polyps 19 MOTHER Hypertension 19 FATHER 19 MOTHER Kidney stone 19 FATHER 19 MOTHER No Pertinent Family Hx Physical Exam Vital Signs Vital Signs - First Documented 07/25/22 16:58 Temp 36.9 Pulse 118 Resp 15 B/P (MAP) 174/112 (132) Pulse Ox 100 O2 Delivery Room Air Capillary Refill : Less Than 3 Seconds Height/Weight/BMI Height: 5'9.00" Weight: 150lbs. 0oz. [id number]; 21.00 BMI Method:Stated General Appearance: WD/WN, no apparent distress HEENT: PERRL/EOMI, normal ENT inspection, pharynx normal Neck: non-tender, normal inspection Respiratory: chest non-tender, lungs clear, normal breath sounds, no respiratory distress, no accessory muscle use Cardiovascular: regular rate, rhythm Gastrointestinal: normal bowel sounds, soft, tenderness Extremities: normal range of motion, no calf tenderness Back: normal inspection, no vertebral tenderness Neurologic/Psychiatric: no motor/sensory deficits, alert, normal mood/affect, oriented x 3 Skin: normal color, warm/dry Progress/Results/Core Measures Results/Orders Lab Results Laboratory Tests Test 07/25/22 17:15 07/25/22 17:35 Range/Units Urine Color YELLOW Urine Clarity CLEAR Urine pH 5.5 5-9 Urine Specific [place] 1.025 H 1.016-1.022 Urine Protein NEGATIVE NEGATIVE Urine Glucose (UA) NEGATIVE NEGATIVE Urine Ketones NEGATIVE NEGATIVE Urine Nitrite NEGATIVE NEGATIVE Urine Bilirubin NEGATIVE NEGATIVE Urine Urobilinogen 0.2 < = 1.0 MG/DL Urine Leukocyte Esterase 1+ H NEGATIVE Urine RBC (Auto) TRACE-I H NEGATIVE Urine RBC NONE /HPF Urine WBC 5-10 H /HPF Urine Squamous Epithelial Cells 2-5 /HPF Urine Crystals NONE /LPF Urine Bacteria TRACE /HPF Urine Casts NONE /LPF Urine Mucus NEGATIVE /LPF Urine Culture Indicated YES White Blood Count 12.9 H 4.3-11.0 10^3/uL Red Blood Count 4.47 3.80-5.11 10^6/uL Hemoglobin 13.8 11.5-16.0 g/dL Hematocrit 39 35-52 % Mean Corpuscular Volume 87 80-99 fL Mean Corpuscular Hemoglobin 31 25-34 pg Mean Corpuscular Hemoglobin Concent 35 32-36 g/dL Red Cell Distribution Width 11.3 10.0-14.5 % Platelet Count 187 130-400 10^3/uL Mean Platelet Volume 10.6 9.0-12.2 fL Immature Granulocyte % (Auto) 0 % Neutrophils (%) (Auto) 72 42-75 % Lymphocytes (%) (Auto) 21 12-44 % Monocytes (%) (Auto) 6 0-12 % Eosinophils (%) (Auto) 0 0-10 % Basophils (%) (Auto) 0 0-10 % Neutrophils # (Auto) 9.2 H 1.8-7.8 10^3/uL Lymphocytes # (Auto) 2.7 1.0-4.0 10^3/uL Monocytes # (Auto) 0.8 0.0-1.0 10^3/uL Eosinophils # (Auto) 0.1 0.0-0.3 10^3/uL Basophils # (Auto) 0.1 0.0-0.1 10^3/uL Immature Granulocyte # (Auto) 0.1 0.0-0.1 10^3/uL Percent Immature Platelet Fraction 7.0 0.0-7.6 % Sodium Level 137 135-145 MMOL/L Potassium Level 4.3 3.6-5.0 MMOL/L Chloride Level 105 98-107 MMOL/L Carbon Dioxide Level 17 L 21-32 MMOL/L Anion Gap 15 H 5-14 MMOL/L Blood Urea Nitrogen 16 7-18 MG/DL Creatinine 0.86 0.60-1.30 MG/DL Estimat Glomerular Filtration Rate 88 BUN/Creatinine Ratio 19 Glucose Level 101 70-105 MG/DL Calcium Level 10.4 H 8.5-10.1 MG/DL Corrected Calcium 8.5-10.1 MG/DL Total Bilirubin 0.5 0.1-1.0 MG/DL Aspartate Amino Transf (AST/SGOT) 28 5-34 U/L Alanine Aminotransferase (ALT/SGPT) 16 0-55 U/L Alkaline Phosphatase 65 40-136 U/L Total Protein 8.8 H 6.4-8.2 GM/DL Albumin 4.9 H 3.2-4.5 GM/DL Lipase 16 8-78 U/L My Orders Orders - YASMINE WEIR CRITICAL CARE PARAMEDIC Cbc With Automated Diff (07/25/22 17:23) Comprehensive Metabolic Panel (07/25/22:) Lipase (07/25/22 17:23) Ua Culture If Indicated (07/25/22:) Iv/Invasive Line Insertion .IV INSERT (07/25/22:23) Ct Abdomen/Pelvis W (07/25/22:23) Ketorolac Injection (Toradol Injection) (07/25/22 17:30) Ondansetron Injection (Zofran Injectio (07/25/22 17:30) Urine Culture (07/25/22 17:15) Iohexol Injection (Omnipaque 350 Mg/Ml 1 (07/25/22 18:00) Ns (Ivpb) (Sodium Chloride 0.9% Ivpb Bag (07/25/22 18:00) Ns Iv 1000 Ml (Sodium Chloride 0.9%) (07/25/22 18:15) Medications Given in ED Current Medications Medications Dose Ordered Sig/Zee Route Start Time Stop Time Status Last Admin Dose Admin Iohexol 100 ml ONCE ONCE IV 07/25/22 18:00 07/25/22 18:01 DC 07/25/22 17:58 77 ML Ketorolac Tromethamine 15 mg ONCE ONCE IVP 07/25/22 17:30 07/25/22 17:31 DC 07/25/22 17:43 15 MG Ondansetron HCl 4 mg ONCE ONCE IVP 07/25/22 17:30 07/25/22 17:31 DC 07/25/22 17:43 4 MG Sodium Chloride 100 ml ONCE ONCE IV 07/25/22 18:00 07/25/22 18:01 DC 07/25/22 17:58 80 ML Vital Signs/I&O 07/25/22 16:58 Temp 36.9 Pulse 118 Resp 15 B/P (MAP) 174/112 (132) Pulse Ox 100 O2 Delivery Room Air Blood Pressure Mean: 132 Progress Progress Note : Progress Note Patient is nontoxic and well-hydrated on exam. She does have some diffuse abd ominal tenderness to palpation. There is no focality, distention, or rigidity noted. Patient does have some voluntary guarding. Vital signs are reassuring although patient is mildly tachycardic although this is likely secondary to her discomfort. She does not have a fever. Blood pressure is also elevated likely secondary to the pain. Laboratory evaluation is notable for very mild leukocytosis but is otherwise reassuring. Urinalysis without overt sign of infection. Culture is pending. We will abstain from any antimicrobial therapy pending culture results. Patient is markedly constipated on CT scan. We initiate aggressive bowel cleanout with MiraLAX. Patient was also told she can take a dose of magnesium citrate prior to initiating the MiraLAX. Follow-up with PCP. Return precautions for urgent symptomology discussed. Patient verbalized understanding. Departure Impression Primary Impression: Constipation Qualified Codes: K59.00 - Constipation, unspecified Disposition: HOME, SELF-CARE Condition: Stable Departure-Patient Inst. Decision time for Depature: 18:55 Referrals: [facility] [place] Primary Care Physician Patient Instructions: Constipation, Adult (DC) Scripts Hyoscyamine Sulfate (Levsin-Sl) 0.125 Mg Tab.subl 0.125 MG SL Q8H PRN for CRAMPS for 5 Days, #10 TAB 0 Refills Prov: YASMINE WEIR APRN 07/25/22 Ondansetron (Ondansetron Odt) 4 Mg Tab.rapdis 4 MG SL Q4H PRN for NAUSEA/VOMITING for 5 Days, #20 TAB 0 Refills Prov: YASMINE WEIR APRN 07/25/22 Polyethylene Glycol 3350 (Miralax) 17 Gram Powd.pack 17 GM PO UD for 7 Days, #30 EACH 0 Refills take 1-2 doses every 6-8 hours for 2 days or until stools are tea colored; use 1 dose daily thereafter as needed for constipation Prov: YASMINE WEIR APRN 07/25/22 YASMINE WEIR APRN Jul 25, 2022 18:57
[2022-07-25] MEDS ORDERED: HYOSCYAMINE 0.125 MG (LEVSIN) TAB PO ONE (19:00)
[2022-07-25] MEDS ORDERED: POLY17PO6 PO (19:01)
[2022-07-25] MEDS ORDERED: HYOS0.1283 SL (19:02)
[2022-07-25] MEDS ORDERED: ONDA4TAB11 SL (19:02)
[2022-07-25 19:28] VITALS: BP 141/90
== END 2022-07-25 19:32 | disposition home or self-care (01) ==
LOC: EDUNIT# 16:55 → ER 16:57
DX: K59.00 Constipation, unspecified (principal); R00.0 Tachycardia, unspecified; R03.0 Elevated blood-pressure reading, without diagnosis of hypertension
CPT/HCPCS: 36415; 74177; 80053; 81000; 83690; 85025; 87088